=== PATIENT | female | born 1970 | race Caucasian/White ===

== ENCOUNTER 2018-03-12 00:30 | Observation (INO) | payer SELFPAY ==
[~2018-03-12] VITALS: Ht 154.9 cm; Wt 84.9 kg
[2018-03-12] VITALS (13 sets, daily range): BP systolic 93–139; BP diastolic 65–103
--- OUTSIDE RECORDS SUMMARY | 2018-03-12 00:38 | XMS REPORT ---
Author Author AMPARO KONG [facility] eClinicalWorks Address Unknown Phone Unavailable Care Team Providers Care Plasterer Spray Gun Name Role Phone AMPARO KONG CP Unavailable Allergies, Adverse Reactions, Alerts Substance Reaction Event Type Seroquel rls symptoms Drug Allergy Problems Problem Type Condition Code Onset Dates Condition Status Assessment Right-sided low back pain with right-sided sciatica M54.41 Active Problem Lumbago 724.2 Active Assessment Chronic obstructive pulmonary disease, unspecified COPD type J44.9 Active Problem Arthritis 716.90 Active Assessment Dysthymia F34.1 Active Problem Anxiety 300.00 Active Problem Alopecia areata 704.01 Active Problem Depression 311 Active Problem Dysthymia F34.1 Active Problem Chronic obstructive pulmonary disease, unspecified COPD type J44.9 Active Problem Unspecified gastritis and gastroduodenitis without mention of hemorrhage 535.50 Active Problem Unspecified viral hepatitis C without hepatic coma 070.70 Active Problem Moderate episode of recurrent major depressive disorder F33.1 Active Problem Restless legs syndrome [RLS] 333.94 Active Problem Right-sided low back pain with right-sided sciatica M54.41 Active Problem Anxiety state F41.1 Active Problem Essential hypertension I10 Active Problem Alopecia areata L63.9 Active Problem Obstructive chronic bronchitis, with (acute) exacerbation 491.21 Active Problem Chronic airway obstruction, not elsewhere classified 496 Active Problem Essential hypertension, benign 401.1 Active Problem Unspecified fasciitis 729.4 Active Problem Painful respiration 786.52 Active Problem Pain in joint, lower leg 719.46 Active Problem Asthma, unspecified, unspecified status 493.90 Active Problem Pain in joint, shoulder region 719.41 Active Medications Medication Code System Code Instructions Start Date End Date Status Dosage Zyprexa [facility] [address]-74 5 MG Orally Once a day 1 tablet Valium [facility] [address]-41 5 MG Orally twice a day 1 tablet as needed Lisinopril [facility] [address]-75 10 mg 2 times a day January 07, 2014 take 1 tab Ibuprofen [facility] [address]-96 800 MG Orally Three times a day Oct 11, 2015 1 tablet Fluoxetine NDC 0 40 mg orally Once a day April 01, 2014 take 1 tablet Gabapentin [facility] [address]-27 400 MG Orally Three times a day Apr 21, 2015 1 capsule Parafon Forte DSC [facility] 87003337453 500 MG Orally Three times a day 1 tablet Albuterol Sulfate [facility] [address]-87 90 mcg/actuation January 07, 2014 2 puffs by Inhalation route every 4-6 hours as needed PRN cough or wheezing Furosemide [facility] [address]-15 40 mg Orally Once a day as needed for ankle swelling Jul 14, 2015 1-2 tablet Advair Diskus [facility] [address]-79 500-50 MCG/DOSE Inhalation Twice a day February 14, 2015 1 puff tramadol NDC 0 50 mg orally 4 times a day as needed for pain Jul 08, 2014 take 1 tablet doxepin NDC 0 10 mg 2 tablets at bedtime November 12, 2013 not defined Carvedilol [facility] [address]-36 12.5 MG Orally 2 times a day April 01, 2014 1 tablet Procedures Procedure Coding System Code Date Office Visit, Est Pt., Level 3 CPT-4 35229 March 27, 2016 Vital Signs Date/Time: March 27, 2016 Cardiac Monitoring Heart Rate 92 bpm Weight 164.0 lbs Height 64.5 in BMI 27.71 Index Results No Known Results Summary Purpose eClinicalWorks Submission
--- OUTSIDE RECORDS SUMMARY | 2018-03-12 00:38 | XMS REPORT ---
Author Author AMPARO KONG [facility] eClinicalWorks Address Unknown Phone Unavailable Care Team Providers Care Info Specialist Name Role Phone AMPARO KONG CP Unavailable Allergies, Adverse Reactions, Alerts Substance Reaction Event Type Seroquel rls symptoms Drug Allergy Problems Problem Type Condition ICD-9 Code Onset Dates Condition Status Problem Chronic airway obstruction, not elsewhere classified 496 Active Problem Pain in joint, shoulder region 719.41 Active Problem Asthma, unspecified, unspecified status 493.90 Active Problem Depression 311 Active Problem Anxiety 300.00 Active Problem Alopecia areata 704.01 Active Problem Pain in joint, lower leg 719.46 Active Problem Painful respiration 786.52 Active Problem Arthritis 716.90 Active Problem Lumbago 724.2 Active Assessment Chronic airway obstruction, not elsewhere classified 496 Active Assessment Pain in joint, lower leg 719.46 Active Assessment Alopecia areata 704.01 Active Assessment Depression 311 Active Problem Unspecified gastritis and gastroduodenitis without mention of hemorrhage 535.50 Active Problem Essential hypertension, benign 401.1 Active Problem Restless legs syndrome [RLS] 333.94 Active Problem Unspecified fasciitis 729.4 Active Problem Unspecified viral hepatitis C without hepatic coma 070.70 Active Problem Obstructive chronic bronchitis, with (acute) exacerbation 491.21 Active Medications Medication Code System Code Instructions Start Date End Date Status Dosage Lisinopril [facility] [address]-35 10 mg January 07, 2014 take 1 tablet by Oral route 1 time per day Take in am Advair Diskus [facility] [address]-16 500-50 MCG/DOSE Inhalation Twice a day February 14, 2015 [address] [facility] [address]-77 15 MG Once a day Jul 08, 2014 take 1 Tablet Albuterol Sulfate [facility] [address]-95 90 mcg/actuation January 07, 2014 2 puffs by Inhalation route every 4-6 hours as needed PRN cough or wheezing tramadol ND 0 50 mg orally 4 times a day as needed for pain Jul 08, 2014 take 1 tablet Abilify [facility] [address]-68 15 MG Orally May 24, 2014 take 1 tablet (10 mg) by oral route once daily Valium [facility] [address]-39 5 MG Orally Twice a day 1 tablet as needed Minoxidil [facility] [address]-79 5 % Externally Twice a day May 19, 2015 5 ml to affected area Gabapentin [facility] [address]-61 300 MG Orally Three times a day Apr 21, 2015 1 capsule 1 tab qhs x 5 d then bid x 5 d then tid Carvedilol [facility] [address]-84 12.5 mg April 01, 2014 1 tablet by Oral route 2 times per day Lamictal [facility] [address]-84 200 mg April 01, 2014 take 1 tablet ( 200 mg) by oral route once daily doxepin [facility] 0 November 12, 2013 by oral route Take one 10 mg tablet daily Fluoxetine [facility] 0 80 mg orally Once a day April 01, 2014 take 1 tablet Procedures Procedure Coding System Code Date Office Visit, Est Pt., Level 3 CPT-4 21776 May 19, 2015 Vital Signs Date/Time: May 19, 2015 Temperature 99.5 F Weight 170.6 lbs Height 64.5 in BMI 28.83 Index Blood Pressure Diastolic 72 mmHg Blood Pressure Systolic 120 mmHg Cardiac Monitoring Heart Rate 115 bpm Results No Known Results Summary Purpose eClinicalWorks Submission
--- OUTSIDE RECORDS SUMMARY | 2018-03-12 00:38 | XMS REPORT ---
Author Author AMPARO KONG [facility] eClinicalWorks Address Unknown Phone Unavailable Care Team Providers Care Electrical Electronics Engineer Name Role Phone AMPARO KONG CP Unavailable Allergies, Adverse Reactions, Alerts Substance Reaction Event Type Seroquel rls symptoms Drug Allergy Problems Problem Type Condition Code Onset Dates Condition Status Assessment Acute nasopharyngitis J00 Active Assessment Arthritis M19.90 Active Assessment Chronic obstructive pulmonary disease, unspecified COPD type J44.9 Active Assessment Essential hypertension I10 Active Problem Arthritis 716.90 Active Assessment Moderate episode of recurrent major depressive disorder F33.1 Active Problem Anxiety 300.00 Active Problem Restless legs syndrome [RLS] 333.94 Active Problem Depression 311 Active Problem Anxiety state F41.1 Active Problem Alopecia areata 704.01 Active Problem Moderate episode of recurrent major depressive disorder F33.1 Active Problem Dysthymia F34.1 Active Problem Essential hypertension, benign 401.1 Active Problem Unspecified gastritis and gastroduodenitis without mention of hemorrhage 535.50 Active Problem Arthritis M19.90 Active Problem Unspecified viral hepatitis C without hepatic coma 070.70 Active Problem Alopecia areata L63.9 Active Problem Right-sided low back pain with right-sided sciatica M54.41 Active Problem Chronic obstructive pulmonary disease, unspecified COPD type J44.9 Active Problem Essential hypertension I10 Active Problem Chronic airway obstruction, not elsewhere classified 496 Active Problem Asthma, unspecified, unspecified status 493.90 Active Problem Unspecified fasciitis 729.4 Active Problem Obstructive chronic bronchitis, with (acute) exacerbation 491.21 Active Problem Pain in joint, lower leg 719.46 Active Problem Lumbago 724.2 Active Problem Pain in joint, shoulder region 719.41 Active Problem Painful respiration 786.52 Active Medications Medication Code System Code Instructions Start Date End Date Status Dosage doxepin NDC 0 10 mg by oral route Once a day at hs November 12, 2013 2 tablet Ibuprofen [facility] [address]-04 800 MG Orally Three times a day Oct 11, 2015 1 tablet Furosemide [facility] [address]-21 40 mg Orally Once a day as needed for ankle swelling Jul 14, 2015 1-2 tablet tramadol NDC 0 50 mg orally 4 times a day as needed for pain Jul 08, 2014 take 1 tablet Carvedilol [facility] [address]-64 12.5 MG Orally 2 times a day April 01, 2014 1 tablet Zyprexa [facility] [address]-40 5 mg Orally Once a day 1 tablet Gabapentin [facility] [address]-33 400 MG Orally Three times a day Apr 21, 2015 1 capsule Advair Diskus [facility] [address]-72 500-50 MCG/DOSE Inhalation Twice a day February 14, 2015 1 puff Parafon Forte DSC [facility] 37856728032 500 MG Orally Three times a day 1 tablet Lisinopril [facility] [address]-67 10 mg 2 times a day January 07, 2014 take 1 tab Valium [facility] [address]-08 5 MG Orally twice a day 1 tablet as needed Fluoxetine NDC 0 40 mg orally Once a day April 01, 2014 take 1 tablet Albuterol Sulfate [facility] [address]-31 90 mcg/actuation Inhalation 4 times a day January 07, 2014 2 puffs by Inhalation route every 4-6 hours as needed PRN cough or wheezing Procedures Procedure Coding System Code Date Office Visit, Est Pt., Level 3 CPT-4 05622 May 23, 2016 Vital Signs Date/Time: May 23, 2016 Cardiac Monitoring Heart Rate 102 bpm Weight 160.4 lbs Height 64.5 in BMI 27.10 Index Blood Pressure Diastolic 74 mmHg Blood Pressure Systolic 120 mmHg Results No Known Results Summary Purpose eClinicalWorks Submission
--- OUTSIDE RECORDS SUMMARY | 2018-03-12 00:39 | XMS REPORT ---
Author Author AMPARO KONG [facility] eClinicalWorks Address Unknown Phone Unavailable Care Team Providers Care Audit Specialist Name Role Phone AMPARO KONG CP Unavailable Allergies, Adverse Reactions, Alerts Substance Reaction Event Type Seroquel rls symptoms Drug Allergy Problems Problem Type Condition Code Onset Dates Condition Status Problem Chronic [...] 716.90 Active Problem Lumbago 724.2 Active Assessment Ankle swelling, unspecified laterality M25.473 Active Assessment Lumbago 724.2 Active Problem Unspecified gastritis and gastroduodenitis without mention of hemorrhage 535.50 Active Problem Essential hypertension, benign 401.1 Active Problem Restless legs syndrome [RLS] 333.94 Active Problem Unspecified fasciitis 729.4 Active Problem Unspecified viral hepatitis C without hepatic coma 070.70 Active Problem Obstructive chronic bronchitis, with (acute) exacerbation 491.21 Active Medications Medication Code System Code Instructions Start Date End Date Status Dosage Valium [facility] [address]-68 5 MG Orally Twice a day 1 tablet as needed Fluoxetine [facility] 0 80 mg orally Once a day April 01, 2014 take 1 tablet Gabapentin [facility] [address]-34 300 MG Orally Three times a day Apr 21, 2015 1 capsule 1 tab qhs x 5 d then bid x 5 d then tid Albuterol Sulfate [facility] [address]-94 90 mcg/actuation January 07, 2014 2 puffs by Inhalation route every 4-6 hours as needed PRN cough or wheezing Mobic [facility] [address]-51 15 MG Once a day Jul 08, 2014 take 1 Tablet Abilify [facility] [address]-64 15 MG Orally May 24, 2014 take 1 tablet (10 mg) by oral route once daily tramadol ND 0 50 mg orally 4 times a day as needed for pain Jul 08, 2014 take 1 tablet Carvedilol [facility] [address]-19 12.5 MG April 01, 2014 1 tablet by Oral route 2 times per day doxepin ND 0 November 12, 2013 by oral route Take one 10 mg tablet daily Lisinopril [facility] [address]-20 10 mg January 07, 2014 take 1 tablet by Oral route 1 time per day Take in am Advair Diskus [facility] [address]-60 500-50 MCG/DOSE Inhalation Twice a day February 14, 2015 1 puff Furosemide [facility] [address]-77 40 MG Orally Once a day as needed for ankle swelling Jul 14, 2015 1 tablet Lamictal [facility] [address]-11 200 mg April 01, 2014 take 1 tablet ( 200 mg) by oral route once daily Parafon Forte DSC [facility] [address]-89 500 MG Orally Three times a day Jul 1 tablet Minoxidil [facility] [address]-24 5 % Externally Twice a day May 19, 2015 5 ml to affected area Procedures Procedure Coding System Code Date Office Visit, Est Pt., Level 3 CPT-4 25808 Jul 14, 2015 Vital Signs Date/Time: Jul 14, 2015 Temperature 97.9 F Weight 188.6 lbs Height 64.5 in BMI 31.87 Index Blood Pressure Diastolic 80 mmHg Blood Pressure Systolic 130 mmHg Cardiac Monitoring Heart Rate 97 bpm Results No Known Results Summary Purpose eClinicalWorks Submission
--- OUTSIDE RECORDS SUMMARY | 2018-03-12 00:39 | XMS REPORT ---
Author Author AMPARO KONG [facility] Address [address] [place] [address] Care Team Providers Care Brick Burner Name Role Phone AMPARO KONG Unavailable PROBLEMS Type Condition ICD9-CM Code XHC42-LD Code Onset Dates Condition Status SNOMED Code Problem Alopecia areata 704.01 Active 36815532 Problem Right-sided low back pain with right-sided sciatica M54.41 Active 893776006 Problem Anxiety state F41.1 Active 597821018 Problem Arthritis M19.90 Active 0586381 Problem Unspecified fasciitis 729.4 Active 26414777 Problem Moderate episode of recurrent major depressive disorder F33.1 Active 216762131 Problem Essential hypertension, benign 401.1 Active 9336834 Problem Unspecified gastritis and gastroduodenitis without mention of hemorrhage 535.50 Active 621639073 Problem Essential hypertension I10 Active 71491433 Problem Alopecia areata L63.9 Active 08954861 Problem Dysthymia F34.1 Active 67785046 Problem Chronic obstructive pulmonary disease, unspecified COPD type J44.9 Active 46181575 Problem Asthma, unspecified, unspecified status 493.90 Active 94178855 Problem Pain in joint, shoulder region 719.41 Active 505760660 Problem Obstructive chronic bronchitis, with (acute) exacerbation 491.21 Active 715083637 Problem Chronic airway obstruction, not elsewhere classified 496 Active 71894242 Problem Lumbago 724.2 Active 165145560 Problem Arthritis 716.90 Active 4068446 Problem Restless legs syndrome [RLS] 333.94 Active 59579059 Problem Painful respiration 786.52 Active 90350157 Problem Anxiety 300.00 Active 90204772 Problem Unspecified viral hepatitis C without hepatic coma 070.70 Active 82537462 Problem Pain in joint, lower leg 719.46 Active 424688180 Problem Depression 311 Active 72629384 ALLERGIES Substance Reaction Event Type Date Status Seroquel rls symptoms Drug Allergy Aug, Active SOCIAL HISTORY No smoking Hx information available PLAN OF CARE Activity Details Follow Up 4 Weeks Reason:depression VITAL SIGNS Height 64.5 in 2016-08-14 Weight 167.2 lbs 2016-08-14 Temperature 96.9 degrees Fahrenheit 2016-08-14 Heart Rate 98 bpm 2016-08-14 Respiratory Rate 20 2016-08-14 Oximetry 99 % 2016-08-14 BMI 28.25 kg/m2 2016-08-14 Blood pressure systolic 122 mmHg 2016-08-14 Blood pressure diastolic 70 mmHg 2016-08-14 MEDICATIONS Medication Instructions Dosage Frequency Start Date End Date Duration Status doxepin 10 mg by oral route Once a day at hs 2 tablet Oct, Active Carvedilol 12.5 MG Orally 2 times a day 1 tablet 12h Mar, Active Albuterol Sulfate 90 mcg/actuation Inhalation 4 times a day 2 puffs by Inhalation route every 4-6 hours as needed PRN cough or wheezing 6h December, Active Lamictal 25 MG Orally Once a day 1-2 tablets 1 tab qhs x 2 then 2 tab qhs 24h Aug, Active Ibuprofen 800 MG Orally Three times a day 1 tablet 8h Oct, Active Valium 5 mg Orally twice a daymust last month 1 tablet as needed Active Gabapentin 400 MG Orally Three times a day 1 capsule 8h Apr, Active Lisinopril 10 mg take 1 tab 12h December, Active Advair Diskus 500-50 MCG/DOSE Inhalation Twice a day 1 puff 12h Jan, Active Fluoxetine 40 mg orally Once a day take 2 tablet 24h Mar, Active PredniSONE 10 MG Orally Once a day 4 tablet with food or milk x 4 d then 3 tab x 4 d then 2 tab x 4 d then 1 tab x 4 d 24h Aug, Active Parafon Forte DSC 500 MG Orally Three times a day 1 tablet 8h Active RESULTS Name Result Date Reference Range URINE DRUG SCREEN (IN HOUSE) 2016-08-14 Lot # [id number] Exp date 10/19 Control positive COCAINE neg AMPH neg MTD neg THC neg OPIATE neg BENZO neg PCP neg BAR neg OXY neg MAMP neg TCA neg BUP neg MDMA neg PROCEDURES Procedure Date Ordered Related Diagnosis Body Site MEASURE BLOOD OXYGEN LEVEL Aug 14, 2016 DRUG SCREEN NON TLC DEVICES Aug 14, 2016 NEB/MDI RX INITIAL Aug 14, 2016 Office Visit, Est Pt., Level 3 Aug 14, 2016 IMMUNIZATIONS No Known Immunizations
--- OUTSIDE RECORDS SUMMARY | 2018-03-12 00:39 | XMS REPORT ---
Author Author AMPARO KONG [facility] eClinicalWorks Address Unknown Phone Unavailable Care Team Providers Care Schedule Announcer Name Role Phone AMPARO KONG CP Unavailable [...] 716.90 Active Problem Lumbago 724.2 Active Assessment Arthritis 716.90 Active Assessment Depression 311 Active Assessment Right foot pain M79.671 Active Problem Unspecified gastritis and gastroduodenitis without mention of hemorrhage 535.50 Active Problem Essential hypertension, benign 401.1 Active Problem Restless legs syndrome [RLS] 333.94 Active Problem Unspecified fasciitis 729.4 Active Problem Unspecified viral hepatitis C without hepatic coma 070.70 Active Problem Obstructive chronic bronchitis, with (acute) exacerbation 491.21 Active Medications Medication Code System Code Instructions Start Date End Date Status Dosage Mobic [facility] [address]-62 15 MG Once a day Jul 08, 2014 take 1 Tablet Advair Diskus [facility] [address]-45 500-50 MCG/DOSE Inhalation Twice a day February 14, 2015 1 puff Lisinopril [facility] [address]-19 10 mg January 07, 2014 take 1 tablet by Oral route 1 time per day Take in am Lamictal [facility] [address]-76 200 mg April 01, 2014 take 1 tablet ( 200 mg) by oral route once daily Minoxidil [facility] [address]-44 5 % Externally Twice a day May 19, 2015 5 ml to affected area Gabapentin [facility] [address]-61 300 MG Orally Three times a day Apr 21, 2015 1 capsule 1 tab qhs x 5 d then bid x 5 d then tid Albuterol Sulfate [facility] [address]-20 90 mcg/actuation January 07, 2014 2 puffs by Inhalation route every 4-6 hours as needed PRN cough or wheezing doxepin NDC 0 November 12, 2013 by oral route Take one 10 mg tablet daily Carvedilol [facility] [address]-42 12.5 mg April 01, 2014 1 tablet by Oral route 2 times per day Abilify [facility] [address]-56 15 MG Orally May 24, 2014 take 1 tablet (10 mg) by oral route once daily tramadol NDC 0 50 mg orally 4 times a day as needed for pain Jul 08, 2014 take 1 tablet Valium [facility] [address]-11 5 MG Orally Twice a day 1 tablet as needed Fluoxetine NDC 0 80 mg orally Once a day April 01, 2014 take 1 tablet Procedures Procedure Coding System Code Date Office Visit, Est Pt., Level 3 CPT-4 83370 Jun 16, 2015 Vital Signs Date/Time: Jun 16, 2015 Temperature 98.4 F Weight 171 lbs Height 64.5 in BMI 28.90 Index Blood Pressure Diastolic 70 mmHg Blood Pressure Systolic 130 mmHg Cardiac Monitoring Heart Rate 80 bpm Results No Known Results Summary Purpose eClinicalWorks Submission
--- OUTSIDE RECORDS SUMMARY | 2018-03-12 00:39 | XMS REPORT ---
Author Author AMPARO KONG Organization eClinicalWorks Address Unknown Phone Unavailable Care Team Providers Care Cad Design Engineer Name Role Phone AMPARO KONG CP Unavailable Allergies No Known Allergies Problems Problem Type Condition Code Onset Dates Condition Status Problem Anxiety 300.00 Active Problem Alopecia areata 704.01 Active Problem Depression 311 Active Problem Dysthymia F34.1 Active Problem Unspecified gastritis and gastroduodenitis without mention of hemorrhage 535.50 Active Problem Chronic obstructive pulmonary disease, unspecified COPD type J44.9 Active Problem Unspecified viral hepatitis C without hepatic coma 070.70 Active Problem Restless legs syndrome [RLS] 333.94 Active Problem Moderate episode of recurrent major depressive disorder F33.1 Active Problem Right-sided low back pain with [...] Asthma, unspecified, unspecified status 493.90 Active Problem Lumbago 724.2 Active Problem Pain in joint, shoulder region 719.41 Active Problem Arthritis 716.90 Active Medications Medication Code System Code Instructions Start Date End Date Status Dosage tramadol NDC 0 50 mg orally 4 times a day as needed for pain Jul 08, 2014 take 1 tablet Results No Known Results Summary Purpose eClinicalWorks Submission
--- OUTSIDE RECORDS SUMMARY | 2018-03-12 00:39 | XMS REPORT ---
Author Author AMPARO KNOG [facility] Address [address] [place] [address] Care Team Providers Care Busser Name Role Phone AMPARO KONG Unavailable PROBLEMS Type Condition ICD9-CM Code [id number] Code Onset Dates Condition Status SNOMED Code Problem Alopecia areata 704.01 Active 32952554 Problem Right-sided low back pain with right-sided sciatica M54.41 Active 227122901 Problem Anxiety state F41.1 Active 654847013 Problem Arthritis M19.90 Active 0105248 Problem Unspecified fasciitis 729.4 Active 97274714 Problem Moderate episode of recurrent major depressive disorder F33.1 Active 416137618 Problem Essential hypertension, benign 401.1 Active 3745530 Problem Unspecified gastritis and gastroduodenitis without mention of hemorrhage 535.50 Active 436602863 Problem Essential hypertension I10 Active 38989403 Problem Alopecia areata L63.9 Active 54430483 Problem Dysthymia F34.1 Active 50347531 Problem Chronic obstructive pulmonary disease, unspecified COPD type J44.9 Active 19561667 Problem Asthma, unspecified, unspecified status 493.90 Active 47936356 Problem Pain in joint, shoulder region 719.41 Active 569874890 Problem Obstructive chronic bronchitis, with (acute) exacerbation 491.21 Active 093654533 Problem Chronic airway obstruction, not elsewhere classified 496 Active 45816951 Problem Lumbago 724.2 Active 980463842 Problem Arthritis 716.90 Active 7901412 Problem Restless legs syndrome [RLS] 333.94 Active 66863732 Problem Painful respiration 786.52 Active 17802545 Problem Anxiety 300.00 Active 77708723 Problem Unspecified viral hepatitis C without hepatic coma 070.70 Active 00864536 Problem Pain in joint, lower leg 719.46 Active 233591014 Problem Depression 311 Active 81633881 ALLERGIES Unknown Allergies SOCIAL HISTORY No smoking Hx information available PLAN OF CARE VITAL SIGNS MEDICATIONS Unknown Medications RESULTS No Results PROCEDURES No Known procedures IMMUNIZATIONS No Known Immunizations
--- OUTSIDE RECORDS SUMMARY | 2018-03-12 00:39 | XMS REPORT ---
Author Author AMPARO KONG Organization [employer] Address Unknown Phone Unavailable Care Team Providers Care Lithopone Charger Name Role Phone AMPARO KONG CP Unavailable [...] Start Date End Date Status Dosage Valium [facility] [address]-35 5 MG Orally twice a day 1 tablet as needed Results No Known Results Summary Purpose [employer] Submission
--- OUTSIDE RECORDS SUMMARY | 2018-03-12 00:39 | XMS REPORT ---
Author Author AMPARO KONG [facility] [employer] Address Unknown Phone Unavailable Care Team Providers Care Director Service Name Role Phone AMPARO KONG CP Unavailable Allergies, Adverse Reactions, Alerts Substance Reaction Event Type Seroquel rls symptoms Drug Allergy Problems Problem Type Condition ICD-9 Code Onset Dates Condition Status Problem Obstructive chronic bronchitis, with (acute) exacerbation 491.21 Active Problem Asthma, unspecified, unspecified status 493.90 Active Problem Chronic airway obstruction, not elsewhere classified 496 Active Problem Anxiety 300.00 Active Problem Arthritis 716.90 Active Problem Depression 311 Active Problem Painful respiration 786.52 Active Problem Pain in joint, shoulder region 719.41 Active Problem Lumbago 724.2 Active Problem Pain in joint, lower leg 719.46 Active Assessment Depression 311 Active Problem Unspecified viral hepatitis C without hepatic coma 070.70 Active Problem Unspecified gastritis and gastroduodenitis without mention of hemorrhage 535.50 Active Assessment Pain in joint, lower leg 719.46 Active Problem Essential hypertension, benign 401.1 Active Problem Restless legs syndrome [RLS] 333.94 Active Problem Unspecified fasciitis 729.4 Active Medications Medication Code System Code Instructions Start Date End Date Status Dosage tramadol NDC 0 50 mg orally 4 times a day as needed for pain Jul 08, 2014 take 1 tablet Valium [facility] [address]-08 5 MG Orally Twice a day 1 tablet as needed doxepin NDC 0 November 12, 2013 by oral route Take one 10 mg tablet daily Albuterol Sulfate [facility] [address]-49 90 mcg/actuation January 07, 2014 2 puffs by Inhalation route every 4-6 hours as needed PRN cough or wheezing Carvedilol [facility] [address]-89 12.5 mg April 01, 2014 1 tablet by Oral route 2 times per day Fluoxetine NDC 0 80 mg orally Once a day April 01, 2014 take 1 tablet Lamictal [facility] [address]-10 200 mg April 01, 2014 take 1 tablet ( 200 mg) by oral route once daily Mobic [facility] [address]-31 15 MG Once a day Jul 08, 2014 take 1 Tablet Advair Diskus [facility] [address]-46 500-50 MCG/DOSE Inhalation Twice a day February 14, 2015 1 puff Lisinopril [facility] [address]-51 10 mg January 07, 2014 take 1 tablet by Oral route 1 time per day Take in am Gabapentin [facility] [address]-41 300 MG Orally Three times a day Apr 21, 2015 1 capsule 1 tab qhs x 5 d then bid x 5 d then tid Abilify [facility] [address]-69 15 MG Orally May 24, 2014 take 1 tablet (10 mg) by oral route once daily Procedures Procedure Coding System Code Date Office Visit, Est Pt., Level 3 CPT-4 27877 Apr 21, 2015 Vital Signs Date/Time: Apr 21, 2015 Cardiac Monitoring Heart Rate 80 bpm Weight 168 lbs Height 64.5 in BMI 28.39 Index Blood Pressure Diastolic 68 mmHg Blood Pressure Systolic 122 mmHg Results No Known Results Summary Purpose [employer] Submission
--- OUTSIDE RECORDS SUMMARY | 2018-03-12 00:39 | XMS REPORT ---
Author Author AMPARO KONG Organization [employer] Address Unknown Phone Unavailable Care Team Providers Care Horse Trainer Name Role Phone AMPARO KONG CP Unavailable Allergies No Known Allergies Problems Problem Type Condition Code Onset Dates Condition Status Problem Arthritis 716.90 Active Assessment Arthritis M19.90 Active Problem Anxiety 300.00 Active Problem Restless [...] Start Date End Date Status Dosage Valium NDC [address]-62 5 MG Orally twice a day 1 tablet as needed tramadol NDC 0 50 mg orally 4 times a day as needed for pain Jul 08, 2014 take 1 tablet Results No Known Results Summary Purpose [employer] Submission
--- OUTSIDE RECORDS SUMMARY | 2018-03-12 00:39 | XMS REPORT ---
Author Author BONNIE CORRALES [facility] eClinical[employer] Address Unknown Phone Unavailable Care Team Providers Care Signal Integrity Engineer Name Role Phone BONNIE CORRALES CP Unavailable Allergies No Known Allergies Problems [...] status 493.90 Active Problem Lumbago 724.2 Active Assessment Moderate episode of recurrent major depressive disorder F33.1 Active Problem Pain in joint, shoulder region 719.41 Active Problem Arthritis 716.90 Active Medications No Known Medications Results No Known Results Summary Purpose [employer] Submission
--- OUTSIDE RECORDS SUMMARY | 2018-03-12 00:40 | XMS REPORT ---
Author Author AMPARO KONG [facility] e[employer] Address Unknown Phone Unavailable Care Team Providers Care Furnace And Wash Equipment Operator Name Role Phone AMPARO KONG CP Unavailable Allergies, Adverse Reactions, Alerts Substance Reaction Event Type Seroquel rls symptoms Drug Allergy Problems Problem Type Condition Code Onset Dates Condition Status Problem Pain in joint, lower leg 719.46 Active Assessment Dysthymia F34.1 Active Problem Lumbago 724.2 Active Assessment Right-sided low back pain with right-sided sciatica M54.41 Active Problem Arthritis 716.90 Active Problem Depression 311 Active Problem Anxiety 300.00 Active Problem Chronic obstructive pulmonary disease, unspecified COPD type J44.9 Active Problem Essential hypertension I10 Active Problem Unspecified viral hepatitis C without hepatic coma 070.70 Active Problem Restless legs syndrome [RLS] 333.94 Active Problem Dysthymia F34.1 Active Assessment Essential hypertension I10 Active Problem Anxiety state F41.1 Active Problem Alopecia areata 704.01 Active Problem Alopecia areata L63.9 Active Problem Right-sided low back pain with right-sided sciatica M54.41 Active Problem Unspecified fasciitis 729.4 Active Problem Obstructive chronic bronchitis, with (acute) exacerbation 491.21 Active Problem Unspecified gastritis and gastroduodenitis without mention of hemorrhage 535.50 Active Problem Essential hypertension, benign 401.1 Active Problem Pain in joint, shoulder region 719.41 Active Problem Painful respiration 786.52 Active Problem Chronic airway obstruction, not elsewhere classified 496 Active Problem Asthma, unspecified, unspecified status 493.90 Active Medications Medication Code System Code Instructions Start Date End Date Status Dosage doxepin [facility] 0 10 mg 2 tablets at bedtime November 12, 2013 not defined Lisinopril [facility] [address]-22 10 MG 2 times a day January 07, 2014 take 1 tab Advair Diskus [facility] [address]-02 500-50 MCG/DOSE Inhalation Twice a day February 14, 2015 1 puff Parafon Forte DSC [facility] [address]-63 500 MG Orally Three times a day Jul 1 tablet Fluoxetine NDC 0 40 mg orally Once a day April 01, 2014 take 1 tablet Albuterol Sulfate [facility] [address]-68 90 mcg/actuation January 07, 2014 2 puffs by Inhalation route every 4-6 hours as needed PRN cough or wheezing Valium [facility] [address]-39 5 MG Orally twice a day 1 tablet as needed tramadol NDC 0 50 mg orally 4 times a day as needed for pain Jul 08, 2014 take 1 tablet Gabapentin [facility] [address]-96 400 MG Orally Three times a day Apr 21, 2015 1 capsule Zyprexa [facility] [address]-43 5 MG Orally Once a day 1 tablet Ibuprofen [facility] [address]-00 800 MG Orally Three times a day Oct 11, 2015 1 tablet Carvedilol [facility] [address]-24 12.5 MG Orally 2 times a day April 01, 2014 1 tablet Procedures Procedure Coding System Code Date Office Visit, Est Pt., Level 3 CPT-4 50671 December 08, 2015 Vital Signs Date/Time: December 08, 2015 Temperature 97.9 F Weight 172.2 lbs Height 64.5 in BMI 29.10 Index Blood Pressure Diastolic 70 mmHg Blood Pressure Systolic 96 mmHg Cardiac Monitoring Heart Rate 104 bpm Results No Known Results Summary Purpose eClinicalWorks Submission
--- OUTSIDE RECORDS SUMMARY | 2018-03-12 00:40 | XMS REPORT ---
Author Author AMPARO KONG Organization [employer] Address Unknown Phone Unavailable Care Team Providers Care Director Of Email Marketing Name Role Phone AMPARO KONG CP Unavailable Allergies, Adverse Reactions, Alerts Substance Reaction Event Type Seroquel rls symptoms Drug Allergy Problems Problem Type Condition Code Onset Dates Condition Status Problem Painful respiration 786.52 Active Problem Lumbago 724.2 Active Problem Pain in joint, lower leg 719.46 Active Problem Right-sided low back pain with right-sided sciatica M54.41 Active Assessment Right-sided low back pain with right-sided sciatica M54.41 Active Problem Anxiety state F41.1 Active Assessment Anxiety state F41.1 Active Problem Alopecia areata L63.9 Active Problem Anxiety 300.00 Active Problem Arthritis 716.90 Active Problem Alopecia areata 704.01 Active Problem Depression 311 Active Problem Unspecified viral hepatitis C without hepatic coma 070.70 Active Problem Unspecified gastritis and gastroduodenitis without mention of hemorrhage 535.50 Active Assessment Alopecia areata L63.9 Active Problem Restless legs syndrome [RLS] 333.94 Active Problem Obstructive chronic bronchitis, with (acute) exacerbation 491.21 Active Problem Chronic airway obstruction, not elsewhere classified 496 Active Problem Essential hypertension, benign 401.1 Active Problem Asthma, unspecified, unspecified status 493.90 Active Problem Unspecified fasciitis 729.4 Active Problem Pain in joint, shoulder region 719.41 Active Medications Medication Code System Code Instructions Start Date End Date Status Dosage Lisinopril [facility] [address]-70 10 mg January 07, 2014 take 1 tablet by Oral route 1 time per day Take in am tramadol [place] 0 50 mg orally 4 times a day as needed for pain Jul 08, 2014 take 1 tablet Abilify [facility] [address]-26 15 MG Orally May 24, 2014 take 1 tablet (10 mg) by oral route once daily Carvedilol [facility] [address]-02 12.5 MG April 01, 2014 1 tablet by Oral route 2 times per day Minoxidil [facility] [address]-08 5 % Externally Twice a day May 19, 2015 5 ml to affected area Gabapentin [facility] [address]-37 300 MG Orally Three times a day Apr 21, 2015 1 capsule Albuterol Sulfate [facility] [address]-10 90 mcg/actuation January 07, 2014 2 puffs by Inhalation route every 4-6 hours as needed PRN cough or wheezing Advair Diskus [facility] [address]-21 500-50 MCG/DOSE Inhalation Twice a day February 14, 2015 1 puff Fluoxetine [facility] 0 80 mg orally Once a day April 01, 2014 take 1 tablet Furosemide [facility] [address]-23 40 MG Orally Once a day as needed for ankle swelling Jul 14, 2015 [address] M[address] [facility] [address]-45 15 MG Once a day Jul 08, 2014 take 1 Tablet Lamictal [facility] [address]-47 200 mg April 01, 2014 take 1 tablet ( 200 mg) by oral route once daily doxepin [facility] 0 November 12, 2013 by oral route Take one 10 mg tablet daily Valium [facility] [address]-15 5 MG Orally Twice a day 1 tablet as needed Parafon Forte DSC [facility] [address]-97 500 MG Orally Three times a day Jul 1 tablet Procedures Procedure Coding System Code Date Office Visit, Est Pt., Level 3 CPT-4 90905 Aug 11, 2015 Vital Signs Date/Time: Aug 11, 2015 Temperature 98 F Weight 186 lbs Height 64.5 in BMI 31.43 Index Blood Pressure Diastolic 78 mmHg Blood Pressure Systolic 130 mmHg Cardiac Monitoring Heart Rate 90 bpm Results No Known Results Summary Purpose eClinicalWorks Submission
--- OUTSIDE RECORDS SUMMARY | 2018-03-12 00:40 | XMS REPORT ---
Author Author AMPARO KONG [facility] Address [address] [place] [address] Care Team Providers Care Administration Professional Name Role Phone AMPARO KONG Unavailable PROBLEMS Type Condition ICD9-CM Code [id number] Code Onset Dates Condition Status SNOMED Code Problem Alopecia areata 704.01 Active 70527143 Problem Right-sided low back pain with right-sided sciatica M54.41 Active 246789381 Problem Anxiety state F41.1 Active 885769372 Problem Arthritis M19.90 Active 1033887 Problem Unspecified fasciitis 729.4 Active 46111791 Problem Moderate episode of recurrent major depressive disorder F33.1 Active 204400223 Problem Essential hypertension, benign 401.1 Active 7682408 Problem Unspecified gastritis and gastroduodenitis without mention of hemorrhage 535.50 Active 635584559 Problem Essential hypertension I10 Active 82665791 Problem Alopecia areata L63.9 Active 39321295 Problem Dysthymia F34.1 Active 04441629 Problem Chronic obstructive pulmonary disease, unspecified COPD type J44.9 Active 15986943 Problem Asthma, unspecified, unspecified status 493.90 Active 97853613 Problem Pain in joint, shoulder region 719.41 Active 612787110 Problem Obstructive chronic bronchitis, with (acute) exacerbation 491.21 Active 111619977 Problem Chronic airway obstruction, not elsewhere classified 496 Active 77734178 Problem Lumbago 724.2 Active 520939304 Problem Arthritis 716.90 Active 7624093 Problem Restless legs syndrome [RLS] 333.94 Active 28792122 Problem Painful respiration 786.52 Active 75100657 Problem Anxiety 300.00 Active 36234136 Problem Unspecified viral hepatitis C without hepatic coma 070.70 Active 32454905 Problem Pain in joint, lower leg 719.46 Active 359969334 Problem Depression 311 Active 37641062 ALLERGIES Unknown Allergies SOCIAL HISTORY No smoking Hx information available PLAN OF CARE VITAL SIGNS MEDICATIONS Unknown Medications RESULTS No Results PROCEDURES No Known procedures IMMUNIZATIONS No Known Immunizations
--- OUTSIDE RECORDS SUMMARY | 2018-03-12 00:41 | XMS REPORT | Continuity of Care Document ---
Author Author [facility] Address Unknown Phone Unavailable Allergies Active Description Code Type Severity Reaction Onset Reported/Identified Relationship to Patient Clinical Status Yes Seroquel Drug Allergy N/A N/A 11/12/2013 Medications There is no data. Problems Date Dx Coded Attending Type Code Diagnosis Diagnosed By 02/12/2011 296.33 MO DEPRESSIVE RECURRENT SEVERE W/O PSYCHOTIC BEHAVIOR 02/12/2011 309.81 AN PTSD 02/12/2011 AMPARO KONG APRN 296.33 MO DEPRESSIVE RECURRENT SEVERE W/O PSYCHOTIC BEHAVIOR 02/12/2011 AMPARO KONG APRN 309.81 AN PTSD 02/12/2011 296.33 MO DEPRESSIVE RECURRENT SEVERE W/O PSYCHOTIC BEHAVIOR 02/12/2011 309.81 AN PTSD 02/12/2011 CASE DUGAN DOA K 296.33 MO DEPRESSIVE RECURRENT SEVERE W/O PSYCHOTIC BEHAVIOR 02/12/2011 CASE DUGAN DOA K 309.81 AN PTSD 02/12/2011 CASE DUGAN DOA K 296.33 MO DEPRESSIVE RECURRENT SEVERE W/O PSYCHOTIC BEHAVIOR 02/12/2011 RITCHIE ALLISON RAY K 309.81 AN PTSD 02/12/2011 DUGAN CASE ALLISONA K 296.33 MO DEPRESSIVE RECURRENT SEVERE W/O PSYCHOTIC BEHAVIOR 02/12/2011 CASE DUGAN DOA K 309.81 AN PTSD 02/12/2011 CASE DUGAN DOA K 296.33 MO DEPRESSIVE RECURRENT SEVERE W/O PSYCHOTIC BEHAVIOR 02/12/2011 CASE DUGAN DOA K 309.81 AN PTSD 02/12/2011 CASE DUGAN DOA K 296.33 MO DEPRESSIVE RECURRENT SEVERE W/O PSYCHOTIC BEHAVIOR 02/12/2011 CASE DUGAN DOA K 309.81 AN PTSD 02/12/2011 AMPARO KONG APRN 296.33 MO DEPRESSIVE RECURRENT SEVERE W/O PSYCHOTIC BEHAVIOR 02/12/2011 APMARO KONG APRN 309.81 AN PTSD 02/12/2011 AMPARO KONG APRN 296.33 MO DEPRESSIVE RECURRENT SEVERE W/O PSYCHOTIC BEHAVIOR 02/12/2011 AMPARO KONG APRN 309.81 AN PTSD 02/12/2011 DUGAN DO, RAY K 296.33 MO DEPRESSIVE RECURRENT SEVERE W/O PSYCHOTIC BEHAVIOR 02/12/2011 DUGAN DO RAY K 309.81 AN PTSD 02/12/2011 DUGAN DO, RAY K 296.33 MO DEPRESSIVE RECURRENT SEVERE W/O PSYCHOTIC BEHAVIOR 02/12/2011 UDGAN DO RAY K 309.81 AN PTSD 02/12/2011 DUGAN DO, RAY K 296.33 MO DEPRESSIVE RECURRENT SEVERE W/O PSYCHOTIC BEHAVIOR 02/12/2011 DUGAN DO, RAY K 309.81 AN PTSD 02/12/2011 DUGAN DO, RAY K 296.33 MO DEPRESSIVE RECURRENT SEVERE W/O PSYCHOTIC BEHAVIOR 02/12/2011 DUGAN DO RAY K 309.81 AN PTSD 03/06/2012 719.46 PAIN IN JOINT INVOLVING LOWER LEG 03/06/2012 724.2 BACK PAIN, LOWER 03/06/2012 AMPARO KONG APRN 719.46 PAIN IN JOINT INVOLVING LOWER LEG 03/06/2012 AMPARO KONG APRN 724.2 BACK PAIN, LOWER 03/06/2012 719.46 PAIN IN JOINT INVOLVING LOWER LEG 03/06/2012 724.2 BACK PAIN, LOWER 03/06/2012 DUGAN DO, RAY K 719.46 PAIN IN JOINT INVOLVING LOWER LEG 03/06/2012 DUGAN DO, RAY K 724.2 BACK PAIN, LOWER 03/06/2012 DUGAN DO, RAY K 719.46 PAIN IN JOINT INVOLVING LOWER LEG 03/06/2012 DUGAN DO, RAY K 724.2 BACK PAIN, LOWER 03/06/2012 DUGAN DO, RAY K 719.46 PAIN IN JOINT INVOLVING LOWER LEG 03/06/2012 DUGAN DO, RAY K 724.2 BACK PAIN, LOWER 03/06/2012 DUGAN DO, RAY K 719.46 PAIN IN JOINT INVOLVING LOWER LEG 03/06/2012 DUGAN DO, RAY K 724.2 BACK PAIN, LOWER 03/06/2012 DUGAN DO, RAY K 719.46 PAIN IN JOINT INVOLVING LOWER LEG 03/06/2012 DUGAN DO, RAY K 724.2 BACK PAIN, LOWER 03/06/2012 AMPARO KONG APRN 719.46 PAIN IN JOINT INVOLVING LOWER LEG 03/06/2012 AMPARO KONG APRN 724.2 BACK PAIN, LOWER 03/06/2012 AMPARO KONG APRN 719.46 PAIN IN JOINT INVOLVING LOWER LEG 03/06/2012 AMPARO KONG APRN 724.2 BACK PAIN, LOWER 03/06/2012 DUGAN DO, RAY K 719.46 PAIN IN JOINT INVOLVING LOWER LEG 03/06/2012 DUGAN DO, RAY K 724.2 BACK PAIN, LOWER 03/06/2012 DUGAN DO, RAY K 719.46 PAIN IN JOINT INVOLVING LOWER LEG 03/06/2012 DUGAN DO, RAY K 724.2 BACK PAIN, LOWER 03/06/2012 DUGAN DO, RAY K 719.46 PAIN IN JOINT INVOLVING LOWER LEG 03/06/2012 DUGAN DO, RAY K 724.2 BACK PAIN, LOWER 03/06/2012 DUGAN DO, RAY K 719.46 PAIN IN JOINT INVOLVING LOWER LEG 03/06/2012 DUGAN DO, RAY K 724.2 BACK PAIN, LOWER 05/07/2012 786.52 CHEST WALL PAIN 05/07/2012 AMPARO KONG APRN 786.52 CHEST WALL PAIN 05/07/2012 786.52 CHEST WALL PAIN 05/07/2012 DUGAN DO, RAY K 786.52 CHEST WALL PAIN 05/07/2012 DUGAN DO, RAY K 786.52 CHEST WALL PAIN 05/07/2012 DUGAN DO, RAY K 786.52 CHEST WALL PAIN 05/07/2012 DUGAN DO, RAY K 786.52 CHEST WALL PAIN 05/07/2012 DUGAN DO, RAY K 786.52 CHEST WALL PAIN 05/07/2012 AMPARO KONG APRN 786.52 CHEST WALL PAIN 05/07/2012 AMPARO KONG APRN 786.52 CHEST WALL PAIN 05/07/2012 DUGAN DO, RAY K 786.52 CHEST WALL PAIN 05/07/2012 DUGAN DO, RAY K 786.52 CHEST WALL PAIN 05/07/2012 DUGAN DO, RAY K 786.52 CHEST WALL PAIN 05/07/2012 DUGAN DO, RAY K 786.52 CHEST WALL PAIN 03/19/2013 535.50 GASTRITIS UNSPEC 03/19/2013 DUGAN DO, RAY K 535.50 GASTRITIS UNSPEC 03/19/2013 DUGAN DO, RAY K 535.50 GASTRITIS UNSPEC 03/19/2013 DUGAN DO, RAY K 535.50 GASTRITIS UNSPEC 03/19/2013 DUGAN DO, RAY K 535.50 GASTRITIS UNSPEC 03/19/2013 DUGAN DO, RAY K 535.50 GASTRITIS UNSPEC 03/19/2013 AMPARO KONG APRN 535.50 GASTRITIS UNSPEC 03/19/2013 AMPARO KONG APRN 535.50 GASTRITIS UNSPEC 03/19/2013 DUGAN DO, RAY K 535.50 GASTRITIS UNSPEC 03/19/2013 DUGAN DO, RAY K 535.50 GASTRITIS UNSPEC 03/19/2013 DUGAN DO, RAY K 535.50 GASTRITIS UNSPEC 03/19/2013 DUGAN DO, RAY K 535.50 GASTRITIS UNSPEC 05/27/2013 DUGAN DO, RAY K 333.94 RESTLESS LEGS SYNDROME (RLS) 05/27/2013 DUGAN DO, RAY K 333.94 RESTLESS LEGS SYNDROME (RLS) 05/27/2013 DUGAN DO, RAY K 333.94 RESTLESS LEGS SYNDROME (RLS) 05/27/2013 DUGAN DO, RAY K 333.94 RESTLESS LEGS SYNDROME (RLS) 05/27/2013 AMPARO KONG APRN 333.94 RESTLESS LEGS SYNDROME (RLS) 05/27/2013 KONGAMPARO DEGROOT APRN 333.94 RESTLESS LEGS SYNDROME (RLS) 05/27/2013 DUGAN DO, RAY K 333.94 RESTLESS LEGS SYNDROME (RLS) 05/27/2013 DUGAN DO, RAY K 333.94 RESTLESS LEGS SYNDROME (RLS) 05/27/2013 DUGAN DO, RAY K 333.94 RESTLESS LEGS SYNDROME (RLS) 05/27/2013 DUGAN DO, RAY K 333.94 RESTLESS LEGS SYNDROME (RLS) 08/12/2013 DUGAN DO, RAY K 491.21 BRONCHITIS AECB 08/12/2013 DUGAN DO, RAY K 491.21 BRONCHITIS AECB 08/12/2013 AMPARO KONG APRN 491.21 BRONCHITIS AECB 08/12/2013 AMPARO KONG APRN 491.21 BRONCHITIS AECB 08/12/2013 DUGAN DO, RAY K 491.21 BRONCHITIS AECB 08/12/2013 DUGAN DO, RAY K 491.21 BRONCHITIS AECB 08/12/2013 DUGAN DO, RAY K 491.21 BRONCHITIS AECB 08/12/2013 DUGAN DO, RAY K 491.21 BRONCHITIS AECB 11/12/2013 DUGAN DO, RAY K 401.1 HYPERTENSION, BENIGN ESSENTIAL 11/12/2013 DUGAN DO, RAY K 729.4 PLANTAR FASCIITIS 11/12/2013 AMPARO KONG APRN R 401.1 HYPERTENSION, BENIGN ESSENTIAL 11/12/2013 KONG AMPARO PURVIS 729.4 PLANTAR FASCIITIS 11/12/2013 KONGAMPARO DEGROOT APRN R 401.1 HYPERTENSION, BENIGN ESSENTIAL 11/12/2013 KONG BEATER OPERATORAMPARO 729.4 PLANTAR FASCIITIS 11/12/2013 DUGAN DO, RAY K 401.1 HYPERTENSION, BENIGN ESSENTIAL 11/12/2013 DUGAN DO, RAY K 729.4 PLANTAR FASCIITIS 11/12/2013 DUGAN DO, RAY K 401.1 HYPERTENSION, BENIGN ESSENTIAL 11/12/2013 DUGAN DO, RAY K 729.4 PLANTAR FASCIITIS 11/12/2013 DUGAN DO, RAY K 401.1 HYPERTENSION, BENIGN ESSENTIAL 11/12/2013 DUGAN DO, RAY K 729.4 PLANTAR FASCIITIS 11/12/2013 DUGAN DO, RAY K 401.1 HYPERTENSION, BENIGN ESSENTIAL 11/12/2013 DUGAN DO, RAY K 729.4 PLANTAR FASCIITIS 01/07/2014 AMPARO KONG APRN R 493.90 ASTHMA UNSPECIFIED 01/07/2014 AMPARO KONG APRN 496 COPD 01/07/2014 DUGAN DO, RAY K 493.90 ASTHMA UNSPECIFIED 01/07/2014 DUGAN DO, RAY K 496 COPD 01/07/2014 DUGAN DO, RAY K 493.90 ASTHMA UNSPECIFIED 01/07/2014 DUGAN DO, RAY K 496 COPD 01/07/2014 DUGAN DO, RAY K 493.90 ASTHMA UNSPECIFIED 01/07/2014 DUGAN DO, RAY K 496 COPD 01/07/2014 DUGAN DO, RAY K 493.90 ASTHMA UNSPECIFIED 01/07/2014 DUGAN DO, RAY K 496 COPD 05/24/2014 DUGAN DO, RAY K 070.70 HEPATITIS C, UNSPEC 05/24/2014 DUGAN DO, RAY K 070.70 HEPATITIS C, UNSPEC 05/24/2014 DUGAN DO, RAY K 070.70 HEPATITIS C, UNSPEC 07/08/2014 DUGAN DO, RAY K 719.41 PAIN- SHOULDER 07/08/2014 RAY DUGAN DO 719.41 PAIN- SHOULDER Procedures Code Description [place] [address] INFLUENZA A & B (IN-HOUSE) 08/12/2013 69820 XRAY FOOT RIGHT COMP MIN 3 VIEWS 12/10/2013 Podiatry Ana Dudley 12/10/2013 63127 EKG, TRACING (IN-HOUSE) 01/07/2014 78698 HEMOGLOBIN (IN-HOUSE) 04/01/2014 85118 ROUTINE VENIPUNCTURE 05/24/2014 0581496 GFR CALC (RESULT ONLY) 05/24/2014 80068 CMP 05/24/2014 28954 HEP C PCR QUANT W/CLEO 05/27/2014 Results There is no data. Encounters ACCT No. Visit Date/Time Discharge Status Pt. Type Provider Facility Loc./Unit Complaint [id number] 12/01/2014 09:24:00 12/01/2014 23:59:59 [facility] Outpatient RAY DUGAN DO [id number] 07/08/2014 10:35:00 07/08/2014 23:59:59 [facility] Outpatient RAY DUGAN DO [id number] 06/02/2014 10:33:00 06/02/2014 23:59:59 CLS Outpatient RAY DUGAN DO [id number] 04/01/2014 09:01:00 04/01/2014 23:59:59 CLS Outpatient RAY DUGAN DO [id number] 01/07/2014 11:08:00 01/07/2014 23:59:59 CLS Outpatient AMPARO KONG APRN [id number] 12/10/2013 09:37:00 12/10/2013 23:59:59 CLS Outpatient AMAPRO KONG APRN [id number] 11/12/2013 09:07:00 11/12/2013 23:59:59 CLS Outpatient RAY DUGAN DO [id number] 08/12/2013 14:11:00 08/12/2013 23:59:59 CLS Outpatient RAY DUGAN DO [id number] 07/13/2013 15:04:00 07/13/2013 23:59:59 CLS Outpatient RAY DUGAN DO [id number] 05/27/2013 08:28:00 05/27/2013 23:59:59 CLS Outpatient RAY DUGAN DO [id number] 04/20/2013 14:33:00 04/20/2013 23:59:59 [place] [id number] 07/04/2012 10:19:00 07/04/2012 23:59:59 CLS Outpatient [id number] 07/04/2012 10:19:00 07/04/2012 23:59:59 CLS Outpatient AMPARO KONG APRN [id number] 03/19/2013 15:50:00 Document Registration
--- OUTSIDE RECORDS SUMMARY | 2018-03-12 00:41 | XMS REPORT ---
Author Author AMPARO KONG [facility] eClinicalWorks Address Unknown Phone Unavailable Care Team Providers Care Commercial Electrician Name Role Phone AMPARO KONG CP Unavailable Allergies, Adverse Reactions, Alerts Substance Reaction Event Type Seroquel rls symptoms Drug Allergy Problems Problem Type Condition Code Onset Dates Condition Status Problem Painful respiration 786.52 Active Problem Lumbago 724.2 Active Problem Pain in joint, lower leg 719.46 Active Problem Right-sided low back pain with right-sided sciatica M54.41 Active Assessment Anxiety state F41.1 Active Problem Anxiety state F41.1 Active Problem Alopecia areata L63.9 Active Problem Anxiety 300.00 Active Problem Arthritis 716.90 Active Problem Alopecia areata 704.01 Active Problem Depression 311 Active Problem Unspecified viral hepatitis C without hepatic coma 070.70 Active Problem Unspecified gastritis and gastroduodenitis without mention of hemorrhage 535.50 Active Assessment Right-sided low back pain with right-sided sciatica M54.41 Active Problem Restless legs syndrome [RLS] 333.94 [...] Instructions Start Date End Date Status Dosage Gabapentin [facility] [address]-51 300 MG Orally Three times a day Apr 21, 2015 1 capsule Lisinopril [facility] [address]-15 10 mg January 07, 2014 take 1 tablet by Oral route 1 time per day Take in am Fluoxetine ND 0 80 mg orally Once a day April 01, 2014 take 1 tablet doxepin [facility] 0 November 12, 2013 by oral route Take one 10 mg tablet daily Valium [facility] [address]-79 5 MG Orally Twice a day 1 tablet as needed Advair Diskus [facility] [address]-58 500-50 MCG/DOSE Inhalation Twice a day February 14, 2015 1 puff Albuterol Sulfate [facility] [address]-44 90 mcg/actuation January 07, 2014 2 puffs by Inhalation route every 4-6 hours as needed PRN cough or wheezing Furosemide [facility] [address]-85 40 MG Orally Once a day as needed for ankle swelling Jul 14, 2015 1 tablet Diclofenac Sodium [facility] [address]-60 75 MG Orally Twice a day Sep 12, 2015 1 tablet tramadol [facility] 0 50 mg orally 4 times a day as needed for pain Jul 08, 2014 take 1 tablet Abilify [facility] [address]-51 15 MG Orally May 24, 2014 take 1 tablet (10 mg) by oral route once daily Minoxidil [facility] [address]-25 5 % Externally Twice a day May 19, 2015 5 ml to affected area Carvedilol [facility] [address]-14 12.5 MG April 01, 2014 1 tablet by Oral route 2 times per day Parafon Forte DSC [facility] [address]-83 500 MG Orally Three times a day Jul 1 tablet Lamictal [facility] [address]-77 200 mg April 01, 2014 take 1 tablet ( 200 mg) by oral route once daily Procedures Procedure Coding System Code Date Office Visit, Est Pt., Level 3 CPT-4 69982 Sep 12, 2015 Vital Signs Date/Time: Sep 12, 2015 Temperature 98.3 F Weight 182 lbs Height 64.5 in BMI 30.75 Index Blood Pressure Diastolic 82 mmHg Blood Pressure Systolic 132 mmHg Cardiac Monitoring Heart Rate 109 bpm Results No Known Results Summary Purpose eClinicalWorks Submission
--- OUTSIDE RECORDS SUMMARY | 2018-03-12 00:41 | XMS REPORT ---
Author Author AMPARO KONG [facility] eClinicalWorks Address Unknown Phone Unavailable Care Team Providers Care Qa Test Analyst Name Role Phone AMPARO KONG CP Unavailable Allergies, Adverse Reactions, Alerts Substance Reaction Event Type Seroquel rls symptoms Drug Allergy Problems Problem Type Condition Code Onset Dates Condition Status Problem Lumbago 724.2 Active Problem Anxiety 300.00 Active Problem Arthritis 716.90 Active Problem Essential hypertension I10 Active Problem Restless legs syndrome [RLS] 333.94 Active Problem Alopecia areata L63.9 Active Assessment Right-sided low back pain with right-sided sciatica M54.41 Active Assessment Chronic obstructive pulmonary disease, unspecified COPD type J44.9 Active Problem Chronic obstructive pulmonary disease, unspecified COPD type J44.9 Active Problem Alopecia areata 704.01 Active Problem Depression 311 Active Problem Right-sided low back pain with right-sided sciatica M54.41 Active Problem Anxiety state F41.1 Active Problem Essential hypertension, benign 401.1 Active Problem Unspecified fasciitis 729.4 Active Problem Unspecified viral hepatitis C without hepatic coma 070.70 Active Problem Unspecified gastritis and gastroduodenitis without mention of hemorrhage 535.50 Active Problem Asthma, unspecified, unspecified status 493.90 Active Problem Pain in joint, shoulder region 719.41 Active Problem Obstructive chronic bronchitis, with (acute) exacerbation 491.21 Active Problem Painful respiration 786.52 Active Assessment Essential hypertension I10 Active Problem Chronic airway obstruction, not elsewhere classified 496 Active Problem Pain in joint, lower leg 719.46 Active Medications Medication Code System Code Instructions Start Date End Date Status Dosage Carvedilol [facility] [address]-49 12.5 MG April 01, 2014 1 tablet by Oral route 2 times per day Fluoxetine NDC 0 20 mg orally Once a day April 01, 2014 take 1 tablet Gabapentin [facility] [address]-22 400 MG Orally Three times a day Apr 21, 2015 1 capsule Advair Diskus [facility] [address]-19 500-50 MCG/DOSE Inhalation Twice a day February 14, 2015 1 puff Parafon Forte DSC [facility] [address]-54 500 MG Orally Three times a day Jul 1 tablet Lisinopril [facility] [address]-48 10 MG January 07, 2014 take 1.5-2 tablet by Oral route 1 time per day Take in am tramadol NDC 0 50 mg orally 4 times a day as needed for pain Jul 08, 2014 take 1 tablet Ibuprofen [facility] [address]-02 800 MG Orally Three times a day Oct 11, 2015 1 tablet Valium [facility] [address]-84 5 MG Orally Once a day 1 tablet as needed doxepin NDC 0 10 mg 2 tablets at bedtime November 12, 2013 not defined Zyprexa [facility] [address]-73 5 MG Orally Once a day 1 tablet Furosemide [facility] [address]-89 40 MG Orally Once a day as needed for ankle swelling Jul 14, 2015 1 tablet Albuterol Sulfate [facility] [address]-33 90 mcg/actuation January 07, 2014 2 puffs by Inhalation route every 4-6 hours as needed PRN cough or wheezing Procedures Procedure Coding System Code Date Office Visit, Est Pt., Level 3 CPT-4 48797 Oct 11, 2015 Vital Signs Date/Time: Oct 11, 2015 Temperature 97.1 F Weight 183 lbs Height 64.5 in BMI 30.92 Index Blood Pressure Diastolic 78 mmHg Blood Pressure Systolic 124 mmHg Cardiac Monitoring Heart Rate 83 bpm Results No Known Results Summary Purpose eClinicalWorks Submission
[2018-03-12] MEDS ORDERED: ASPIRIN 81 MG CHEW (CHILDREN'S ASA) PO ONE (00:45)
[2018-03-12] MEDS: NITROGLYCERIN 0.4 MG SL TABS BTL 25'S SL PRN ×3 (00:58→01:15)
[2018-03-12] MEDS ORDERED: RT-ALBUTEROL/IPRATROPIUM 3 ML (DUONEB) VIAL INH ONE (01:00)
[2018-03-12 01:02] LABS: BASOPHILS % (AUTO) 0 % (0-10); EOSINOPHILS # (AUTO) 0.2 10^3/uL (0.0-0.3); EOSINOPHILS % (AUTO) 2 % (0-10); HEMATOCRIT 39 % (35-52); HEMOGLOBIN 12.9 G/DL (11.5-16.0); LYMPHOCYTES # (AUTO) 3.3 X 10^3 (1.0-4.0); LYMPHOCYTES % (AUTO) 36 % (12-44); MEAN CORPUSCULAR HEMOGLOBIN 29 PG (25-34); MEAN CORPUSCULAR HGB CONC 33 G/DL (32-36); MEAN CORPUSCULAR VOLUME 86 FL (80-99); MEAN PLATELET VOLUME 9.9 FL (7.4-10.4); MONOCYTES # (AUTO) 0.9 X 10^3 (0.0-1.0); MONOCYTES % (AUTO) 10 % (0-12); NEUTROPHILS # (AUTO) 4.8 X 10^3 (1.8-7.8); NEUTROPHILS % (AUTO) 52 % (42-75); PLATELET COUNT 265 10^3/uL (130-400); RED BLOOD COUNT 4.49 10^6/uL (4.35-5.85); RED CELL DISTRIBUTION WIDTH 14.9 % (10.0-14.5); WHITE BLOOD COUNT 9.2 10^3/uL (4.3-11.0)
[2018-03-12 01:21] LABS: ALANINE AMINOTRANSFERASE 42 U/L (0-55); ALBUMIN 3.6 GM/DL (3.2-4.5); ALKALINE PHOSPHATASE 70 U/L (40-136); AMYLASE 46 U/L (25-125); BILIRUBIN,TOTAL 0.2 MG/DL (0.1-1.0); BUN/CREATININE RATIO 16; CALCIUM 9.2 MG/DL (8.5-10.1); CARBON DIOXIDE 25 MMOL/L (21-32); CHLORIDE 105 MMOL/L (98-107); CREATININE SERUM 0.73 MG/DL (0.60-1.30); GFR ESTIMATED > 60; GLUCOSE 101 MG/DL (70-105); LIPASE 28 U/L (8-78); MAGNESIUM 1.9 MG/DL (1.8-2.4); POTASSIUM 3.7 MMOL/L (3.6-5.0); SODIUM 139 MMOL/L (135-145); TOTAL PROTEIN 6.9 GM/DL (6.4-8.2)
[2018-03-12] MEDS ORDERED: COMBIVENT (01:23)
[2018-03-12] MEDS ORDERED: COREG (01:23)
[2018-03-12] MEDS ORDERED: LISINOPRIL (01:23)
[2018-03-12 01:27] LABS: MYOGLOBIN SERUM 16.4 NG/ML (10.0-92.0)
--- NOTE | 2018-03-12 01:56 | ED Chest Pain ---
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 FELT HEAVY BEHIND LUNGS THEN PAIN WENT TO LEFT SIDE 40 MIN CONTROL INSPECTOR. Nursing Sepsis Screen: No Definite Risk Source: patient Exam Limitations: no limitations History of Present Illness Date Seen by Provider: Mar 12, 2018 Time Seen by Provider: 00:40 Initial Comments Here with report of chest pain that started about 2 hours prior to arrival. This has persisted in route to the left side approximate 40 minutes prior to arrival. States that she was nauseated earlier in the morning and then throughout the day she was short of breath but thought it was just her COPD. She did do breathing treatment via [facility] as her nebulizer is still packed. She recently moved to a different trailer. Denies nausea or vomiting. States that she's had respiratory failure previously and was told that she had a heart attack at some point but has not had an evaluation other than echocardiogram. She states that was done in [place]. Does admit to taking a hydrocodone about 2- 1/2 hours ago for the pain. Timing/Duration: 1-3 hours, getting worse Severity/Quality: moderate, severe, aching, tightness Location: central, back Radiation: arms (left), shoulders (left) Activities at Onset: none Prior CP/Workup: echocardiography Modifying Factors: improves with rest ASA po CONTROL INSPECTOR: No NTG SL CONTROL INSPECTOR: No Associated Symptoms: No abdominal pain; back pain; No diaphoresis, No dizziness , No fatigue, No fever/chills, No nausea/vomiting; shortness of breath; No weakness Allergies and Home Medications Allergies Coded Allergies: No Known Drug Allergies (Unverified , 03/12/18) Patient Home Medication List Home Medication List Reviewed: Yes Review of Systems Constitutional: see HPI; No chills, No fever EENTM: No Symptoms Reported Respiratory: See HPI; Denies Cough; Wheezing Cardiovascular: Chest Pain; Denies Edema Gastrointestinal: No Symptoms Reported Genitourinary: No Symptoms Reported Musculoskeletal: see HPI, back pain; No muscle pain Skin: no symptoms reported Psychiatric/Neurological: Anxiety; Denies Weakness All Other Systems Reviewed Negative Unless Noted: Yes Past Txedbyc-Kkzlcs-Edrxah Hx Past Med/Social Hx: Reviewed Nursing Past Med/Soc Hx Patient Social History Alcohol Use: Denies Use Recreational Drug Use: Yes (CLEAN 1 YR OFF IV DRUGS) Drug of Choice: USED A HYDROCODONE Smoking Status: Current Everyday Smoker Type Used: Cigarettes 2nd Hand Smoke Exposure: Yes Recent Foreign Travel: No Contact w/Someone Who Travel: No Recent Infectious Disease Expo: No Recent Hopitalizations: No Seasonal Allergies Seasonal Allergies: No Past Medical History Surgeries: Yes Adenoidectomy, Section, Tonsillectomy Respiratory: Yes Asthma, COPD Cardiac: Yes Heart Attack, Hypertension Neurological: No Genitourinary: No Gastrointestinal: No Musculoskeletal: No Endocrine: No HEENT: No Cancer: No Psychosocial: No Anxiety, PTSD, Bipolar, Depression Integumentary: No Blood Disorders: No Family Medical History No Pertinent Family Hx Physical Exam Vital Signs Vital Signs - First Documented 03/12/18 01:14 Pulse Ox 99 Capillary Refill : Less Than 3 Seconds Height, Weight, BMI Height: 5', 1.00" Weight: 135lbs oz, [id number] Method:Stated ,BMI General Appearance: WD/WN, Anxious, Mild Distress HEENT: PERRL/EOMI, Pharynx Normal Neck: Non Tender, Supple Respiratory: No Accessory Muscle Use, Decreased Breath Sounds Cardiovascular: No Murmur, Tachycardia Gastrointestinal: Non Tender, Soft Extremity: Normal Range of Motion, Non Tender Neurologic/Psychiatric: Alert, Oriented x3 Skin: Normal Color, Warm/Dry Progress/Results/Core Measures Results/Orders Lab Results Laboratory Tests Test 03/12/18 00:55 03/12/18 01:50 Range/Units White Blood Count 9.2 4.3-11.0 10^3/uL Red Blood Count 4.49 4.35-5.85 10^6/uL Hemoglobin 12.9 11.5-16.0 G/DL Hematocrit 39 35-52 % Mean Corpuscular Volume 86 80-99 FL Mean Corpuscular Hemoglobin 29 25-34 PG Mean Corpuscular Hemoglobin Concent 33 32-36 G/DL Red Cell Distribution Width 14.9 H 10.0-14.5 % Platelet Count 265 130-400 10^3/uL Mean Platelet Volume 9.9 7.4-10.4 FL Neutrophils (%) (Auto) 52 42-75 % Lymphocytes (%) (Auto) 36 12-44 % Monocytes (%) (Auto) 10 0-12 % Eosinophils (%) (Auto) 2 0-10 % Basophils (%) (Auto) 0 0-10 % Neutrophils # (Auto) 4.8 1.8-7.8 X 10^3 Lymphocytes # (Auto) 3.3 1.0-4.0 X 10^3 Monocytes # (Auto) 0.9 0.0-1.0 X 10^3 Eosinophils # (Auto) 0.2 0.0-0.3 10^3/uL Basophils # (Auto) 0.0 0.0-0.1 10^3/uL Prothrombin Time 13.0 12.2-14.7 SEC INR Comment 1.0 0.8-1.4 Activated Partial Thromboplast Time 32 24-35 SEC D-Dimer 0.61 H 0.00-0.49 UG/ML Sodium Level 139 135-145 MMOL/L Potassium Level 3.7 3.6-5.0 MMOL/L Chloride Level 105 98-107 MMOL/L Carbon Dioxide Level 25 21-32 MMOL/L Anion Gap 9 5-14 MMOL/L Blood Urea Nitrogen 12 7-18 MG/DL Creatinine 0.73 0.60-1.30 MG/DL Estimat Glomerular Filtration Rate > 60 BUN/Creatinine Ratio 16 Glucose Level 101 70-105 MG/DL Calcium Level 9.2 8.5-10.1 MG/DL Magnesium Level 1.9 1.8-2.4 MG/DL Total Bilirubin 0.2 0.1-1.0 MG/DL Aspartate Amino Transf (AST/SGOT) 31 5-34 U/L Alanine Aminotransferase (ALT/SGPT) 42 0-55 U/L Alkaline Phosphatase 70 40-136 U/L Myoglobin 16.4 10.0-92.0 NG/ML Troponin I < 0.30 <0.30 NG/ML Total Protein 6.9 6.4-8.2 GM/DL Albumin 3.6 3.2-4.5 GM/DL Amylase Level 46 25-125 U/L Lipase 28 8-78 U/L Urine Opiates Screen POSITIVE H NEGATIVE Urine Oxycodone Screen NEGATIVE NEGATIVE Urine Methadone Screen NEGATIVE NEGATIVE Urine Propoxyphene Screen NEGATIVE NEGATIVE Urine Barbiturates Screen NEGATIVE NEGATIVE Ur Tricyclic Antidepressants Screen NEGATIVE NEGATIVE Urine Phencyclidine Screen NEGATIVE NEGATIVE Urine Amphetamines Screen POSITIVE H NEGATIVE Urine Methamphetamines Screen NEGATIVE NEGATIVE Urine Benzodiazepines Screen NEGATIVE NEGATIVE Urine Cocaine Screen NEGATIVE NEGATIVE Urine Cannabinoids Screen NEGATIVE NEGATIVE My Orders Orders - DENISSE,MIGUELITO D MD Cbc With Automated Diff (03/12/18 00:40) Magnesium (03/12/18 00:40) Chest 1 View, Ap/Pa Only (03/12/18 00:40) Ekg Tracing (03/12/18 00:40) Cardiac Profile 1 (03/12/18 00:40) Comprehensive Metabolic Panel (03/12/18 00:40) Myoglobin Serum (03/12/18 00:40) Protime With Inr (03/12/18 00:40) Partial Thromboplastin Time (03/12/18 00:40) O2 (03/12/18 00:40) Monitor-Rhythm Ecg Trace Only (03/12/18 00:40) Lipid Panel (03/13/18 06:00) Aspirin Chewable Tablet (Baby Aspirin Ch (03/12/18 00:45) Saline Lock/Iv-Start (03/12/18 00:40) Lipase (03/12/18 00:40) Amylase (03/12/18 00:40) Drug Screen Stat (Urine) (03/12/18 00:47) Nitroglycerin 0.4 Mg Btl 25's (Nitrostat (03/12/18 01:00) Fibrin Degradation Products (03/12/18 00:47) Albuterol/Ipra Inhalation Soln (Duoneb I (03/12/18 01:00) Svn Small Volume Nebulizer (03/12/18 00:47) Morphine Injection (Morphine Injection (03/12/18 02:48) Medications Given in ED Current Medications Medications Dose Ordered Sig/Darwin Route Start Time Stop Time Status Last Admin Dose Admin Albuterol/ Ipratropium 3 ml ONCE ONCE INH 03/12/18 01:00 03/12/18 01:01 DC 03/12/18 01:13 3 ML Aspirin 324 mg ONCE ONCE PO 03/12/18 00:45 03/12/18 00:46 DC 03/12/18 00:46 324 MG Nitroglycerin 0.4 mg UD PRN SL 03/12/18 01:00 03/12/18 01:16 DC 03/12/18 01:15 0.4 MG Vital Signs/I&O 03/12/18 03/12/18 03/12/18 00:38 00:38 01:14 Temp 98.6 Pulse 114 Resp 20 B/P (MAP) 130/103 (112) Pulse Ox 99 O2 Delivery Room Air Room Air Room Air Blood Pressure Mean: 112 Progress Progress Note : Progress Note Seen and evaluated. IV, labs, EKG and chest x-ray ordered. ASA 324 mg by mouth ordered. Nitroglycerin sublingual ordered and given 3. Pain went from 8 -3. DuoNeb ordered. Monitor patient. We will check UA and UDS as well. Monitor patient. 0150: Pain still 3 out of 10 but resting comfortably. UA obtained. Troponin still pending. 0245: Patient still with pain. Morphine 2 mg IV ordered. Have reviewed the patient's labs. Troponin is negative. Patient has history of possible previous heart attack as well as family history with mother dying at age 41 of a heart attack. Given persistent pain and family history as well as patient's personal history, further evaluation is indicated. 0249: I did discuss the case with Dr. Gonzales. She accepts patient for admission, observation status. Cardiology consult in the a.m. Patient and family agree with plan. Initial ECG Impression Date: Mar 12, 2018 Initial ECG Impression Time: 00:38 Initial ECG Rate: 97 Initial ECG Rhythm: Normal Sinus Initial ECG Comparisson: No Previous ECG Available Comment Sinus rhythm with left axis deviation. No evidence of ST elevation [place]. Left atrial abnormality noted. No previous available for comparison. Interpreted by me. Diagnostic Imaging Diagonstic Imaging: Xray Plain Films/CT/US/NM/MRI: chest Comments Portable 1 view chest shows no acute findings. Reviewed: Reviewed by Me Departure Communication (Admissions) Time/Spoke to Admitting Phy: 02:49 Impression Primary Impression: Chest pain Qualified Codes: R07.9 - Chest pain, unspecified Disposition: ADMITTED INPATIENT Condition: Stable Admissions Decision to Admit Reason: Admit from ER (General) Decision to Admit/Date: Mar 12, 2018 Time/Decision to Admit Time: 02:49 Departure-Patient Inst. Referrals: NO,LOCAL PHYSICIAN (PCP/Family) Primary Care Physician MIGUELITO SALCEDO MD Mar 12, 2018 01:56
[2018-03-12 02:13] LABS: AMPHETAMINE SCREEN, URINE POSITIVE (NEGATIVE); BARBITURATE SCREEN URINE NEGATIVE (NEGATIVE); BENZODIAZEPINES SCREEN URINE NEGATIVE (NEGATIVE); CANNABINOID SCREEN, URINE NEGATIVE (NEGATIVE); COCAINE SCREEN URINE NEGATIVE (NEGATIVE); METHADONE STAT NEGATIVE (NEGATIVE); METHAMPHETAMINE SCREEN URINE S NEGATIVE (NEGATIVE); OPIATE SCREEN URINE POSITIVE (NEGATIVE); OXYCODONE STAT NEGATIVE (NEGATIVE); PROPOXYPHENE STAT NEGATIVE (NEGATIVE); TRICYCLIC ANTIDEPRESSANTS SCRE NEGATIVE (NEGATIVE)
[2018-03-12] MEDS ORDERED: morphine INJ 10 MG/ML 1ML (SYR OR VIAL) IVP STA (02:48)
--- OUTSIDE RECORDS SUMMARY | 2018-03-12 04:09 | XMS REPORT | Continuity of Care Document ---
Author Author [facility] Address Unknown Phone Unavailable Allergies Active [...] DUGAN DOA K 309.81 AN PTSD 02/12/2011 CSAE DUGAN DOA K 296.33 MO DEPRESSIVE RECURRENT SEVERE W/O PSYCHOTIC BEHAVIOR 02/12/2011 CASE UDGAN DOA K 309.81 AN PTSD 02/12/2011 AMPARO KONG APRN 296.33 MO DEPRESSIVE RECURRENT SEVERE W/O PSYCHOTIC BEHAVIOR 02/12/2011 AMPARO KONG APRN 309.81 AN PTSD 02/12/2011 AMPARO [...] K 333.94 RESTLESS LEGS SYNDROME (RLS) 05/27/2013 DUGNA DO, RAY K 333.94 RESTLESS LEGS SYNDROME [...] R 401.1 HYPERTENSION, BENIGN ESSENTIAL 11/12/2013 KONG HAIRSPRING CUTTERAMPARO 729.4 PLANTAR FASCIITIS 11/12/2013 DUGAN DO, RAY [...] Procedures Code [place] [address] INFLUENZA A & B (IN-HOUSE) 08/12/2013 66904 XRAY FOOT RIGHT COMP MIN 3 VIEWS 12/10/2013 Podiatry Ana Dudley 12/10/2013 35796 EKG, TRACING (IN-HOUSE) 01/07/2014 22787 HEMOGLOBIN (IN-HOUSE) 04/01/2014 75730 ROUTINE VENIPUNCTURE 05/24/2014 [id number] GFR CALC (RESULT ONLY) 05/24/2014 12718 CMP 05/24/2014 04958 HEP C PCR QUANT W/CLEO 05/27/2014 Results There is no data. Encounters ACCT No. Visit Date/Time Discharge Status Pt. Type Provider Facility Loc./Unit Complaint [id number] 12/01/2014 09:24:00 12/01/2014 23:59:59 [facility] Outpatient RAY DUGAN DO [id number] 07/08/2014 10:35:00 07/08/2014 23:59:59 [facility] Outpatient RAY DUGAN DO [id number] 06/02/2014 10:33:00 06/02/2014 23:59:59 CLS Outpatient RAY DUGAN DO [id number] 04/01/2014 09:01:00 04/01/2014 23:59:59 CLS Outpatient RAY DUGAN DO [id number] 01/07/2014 11:08:00 01/07/2014 23:59:59 [facility] Outpatient AMPARO KONG APRN [id number] 12/10/2013 09:37:00 12/10/2013 23:59:59 [facility] Outpatient AMPARO KONG APRN [id number] 11/12/2013 09:07:00 11/12/2013 23:59:59 CLS Outpatient RAY DUGAN DO [id number] 08/12/2013 14:11:00 08/12/2013 23:59:59 CLS Outpatient RAY DUGAN DO [id number] 07/13/2013 15:04:00 07/13/2013 23:59:59 CLS Outpatient RAY DUGAN DO [id number] 05/27/2013 08:28:00 05/27/2013 23:59:59 CLS Outpatient RAY DUGAN DO [id number] 04/20/2013 14:33:00 04/20/2013 23:59:59 [place] [id number] 07/04/2012 10:19:00 07/04/2012 23:59:59 CLS Outpatient [id number] 07/04/2012 10:19:00 07/04/2012 23:59:59 CLS Outpatient AMPARO KONG APRN [id number] 03/19/2013 15:50:00 Document Registration
[2018-03-12] MEDS: NS IV 1000 ML 1,000 ML IV SCH ×2 (04:59→18:31)
[2018-03-12] MEDS ORDERED: NITROGLYCERIN 0.4 MG SL TABS BTL 25'S SL PRN (05:00)
[2018-03-12] MEDS: CATHETER FLUSH 10 ML SYR IV SCH ×3 (05:00→21:18)
[2018-03-12] MEDS ORDERED: CATHETER FLUSH 10 ML SYR IV PRN (05:00)
[2018-03-12] MEDS ORDERED: morphine INJ 4 MG/ML 1 ML (VIAL/SYRINGE) IV PRN (05:00)
[2018-03-12] MEDS ORDERED: RT-ALBUTEROL/IPRATROPIUM 3 ML (DUONEB) VIAL INH PRN (05:00)
[2018-03-12] MEDS: RT-ALBUTEROL/IPRATROPIUM 3 ML (DUONEB) VIAL INH SCH ×2 (07:25→18:56)
[2018-03-12 07:45] LABS: CHOLESTEROL 171 MG/DL (< 200); CREATINE KINASE 32 U/L (29-168); HDL CHOLESTEROL 52 MG/DL (40-60); TRIGLYCERIDES 138 MG/DL (<150); VLDL CHOLESTEROL 28 MG/DL (5-40)
[2018-03-12 07:52] LABS: MYOGLOBIN SERUM 13.6 NG/ML (10.0-92.0)
--- NOTE | 2018-03-12 08:22 | Diagnostic Imaging Report ---
INDICATION: Chest pain. TECHNIQUE: Single view chest 1:13 AM. CORRELATION STUDY: 06/15/2010 FINDINGS: Heart size, mediastinum and vasculature generally stable. The lungs are clear with no consolidating infiltrate. There is no significant effusion or pneumothorax. IMPRESSION: 1. Generally stable portable chest demonstrates no acute abnormality. Dictated by: Dictated on workstation # [id number]
[2018-03-12] MEDS: ASPIRIN E.C. 81 MG (ECOTRIN) TAB PO SCH (09:16)
[2018-03-12] MEDS: KETOROLAC 30 MG/ML VIAL IVP PRN ×2 (11:02→19:38)
[2018-03-12] MEDS ORDERED: IOHEXOL 350 MG/ML 150 ML (OMNIPAQUE 350) VIAL IV ONE (13:45)
[2018-03-12] MEDS ORDERED: NS 100 ML (IVPB) BAG IV ONE (13:45)
--- NOTE | 2018-03-12 14:32 | Diagnostic Imaging Report ---
PROCEDURE: CT angiography of the chest with contrast. TECHNIQUE: Multiple contiguous axial images were obtained through the chest after uneventful bolus administration of intravenous contrast. Reconstructed CTA MIP acquisitions were also performed. INDICATION: Chest pain with shortness of breath. FINDINGS: There are no intraluminal pulmonary arterial filling defects. There are no findings of pulmonary arterial embolus. There is bibasilar dependent partial atelectasis. The heart size is within normal limits. There is no pleural or pericardial effusion. No lung mass or thoracic lymphadenopathy. No acute chest wall pathology. The upper abdomen appears nonacute. IMPRESSION: Dependent atelectasis. Negative for PE or other acute abnormalities. Dictated by: Dictated on workstation # [id number]
--- NOTE | 2018-03-12 19:33 | Consultation-Cardiology ---
HPI-Cardiology Cardiology Consultation: Date of Consultation 03/12/18 Date of Admission Attending Physician Georgia Gonzales MD Admitting Physician [facility] Consulting Physician David CUELLAR MD HPI: Time Seen by Provider: 12:45 Chief Complaint: Chest pain This is a 47-year-old female with history of known history of active smoking, family history of premature CAD, previous IV drug abuse. She presents with prolonged episode of chest pain which radiated to the left arm. Moderate intensity. Described it as achiness. No significant associated factors however she has history of COPD and she used her nebulizer or shortness of breath. Review of Systems-Cardiology Review of Systems Constitutional: No As described under HPI, No no symptoms reported, No chills, No fever, No lightheadedness, No malaise, No tiredness, No weight loss, No weight gain, No other Eyes: No As described under HPI, No no symptoms reported, No blindness, No blurred vision, No contact lenses, No drainage, No decreased acuity, No foreign body sensation, No glasses, No inflammation, No pain, No photophobia, No previous injury, No shadows, No tunnel vision, No other, No vision change Ears/Nose/Throat: No As described under HPI, No no symptoms reported, No chronic hearing loss, No epistaxis, No ear discharge, No ear pain, No loose teeth, No mouth pain, No mouth swelling, No nasal drainage, No nose pain, No recent hearing loss, No throat pain, No throat swelling, No ulcerations, No other Respiratory: No no symptoms reported, No As described under HPI, No cough, No orthopnea; shortness of breath; No SOB with excertion, No SOB at rest, No stridor, No wheezing, No other Cardiovascular: No no symptoms reported, No As described under HPI; chest pain ; No edema, No irregular heart rate, No lightheadedness, No palpitations, No syncope, No other Gastrointestinal: No no symptoms reported, No As described under HPI, No abdomen distended, No abdominal pain, No blood streaked bowels, No constipation , No diarrhea, No difficulty swallowing, No nausea, No poor appetite, No poor fluid intake, No rectal bleeding, No vomiting, No other, No nausea/vomiting/ diarrhea, No stool coloration changes Genitourinary: No no symptoms reported, No As described under HPI, No burning, No dysuria, No discharge, No frequency, No flank pain, No hematuria, No incontinence, No pain, No urgency, No other, No urine frequency changes, No urine coloration changes Musculoskeletal: No no symptoms reported, No As describe under HPI, No back pain, No gout, No joint pain, No joint swelling, No muscle pain, No muscle stiffness, No neck pain, No other Skin: No no symptoms reported, No As described under HPI, No change in color, No change in hair/nails, No dryness, No lesions, No lumps, No rash, No other, No skin related problems, No ulcerations, No rash on exposed areas, No ulcerations on exposed areas Psychiatric/Neurological: No no symptoms reported, No As described under HPI, No anxiety, No depression, No emotional problems, No headache, No numbness, No pre-existing deficit, No seizure, No tingling, No tremors, No weakness, No other , No focal weakness, No syncope All Other Systems Reviewed Negative Unless Noted: Yes [id number] Hx Patient Social History Alcohol Use: Denies Use Recreational Drug Use: Yes (CLEAN 1 YR OFF IV DRUGS) Drug of Choice: USED A HYDROCODONE Smoking Status: Current Everyday Smoker Type Used: Cigarettes 2nd Hand Smoke Exposure: Yes Recent Foreign Travel: No Recent Infectious Disease Expo: No Hospitalization with Isolation: Denies Past Medical History PMH As described under Assessment. Family Medical History Family History: Myocardial infarction 19 MOTHER Allergies and Home Medications Allergies Coded Allergies: No Known Drug Allergies (Unverified , 03/12/18) Home Medications No Active Prescriptions or Reported Meds Patient Home Medication List Home Medication List Reviewed: Yes Physical Exam-Cardiology Physical Exam Vital Signs/I&O 03/12/18 03/12/18 03/12/18 03/12/18 08:13 08:30 09:30 11:55 Temp 96.5 96.9 96.8 Pulse 88 81 83 Resp 22 18 20 B/P (MAP) 109/77 (88) 93/65 (74) 120/80 (93) Pulse Ox 99 98 98 O2 Delivery Room Air Room Air Room Air Room Air 03/12/18 03/12/18 03/12/18 13:00 15:30 18:57 Temp 97.5 Pulse 82 100 Resp 20 B/P (MAP) 139/87 (104) Pulse Ox 100 95 O2 Delivery Room Air Room Air Capillary Refill : Less Than 3 Seconds Constitutional: AAO x 3 HEENT: PERRL; No normal ENT inspection, No TMs normal, No pharynx normal, No scleral icterus (R), No scleral icterus (L), No pale conjunctivae (R), No pale conjunctivae (L), No photophobia, No TM abnormal (R), No TM abnormal (L), No pharyngeal erythema, No tonsillar exudate, No other, No discharge, No EOMI; hearing is well preserved; No hard of hearing; oral hygience is good; No ulceration, No xanthelasmas are seen Neck: No non-tender, No full range of motion, No supple, No normal inspection, No carotid bruit, No limited range of motion, No lymphadenopathy (R), No lymphadenopathy (L), No tender lateral, No tender midline, No thyromegaly, No other; carotid pulses are 2 + bilaterally; No with good upstrokes Respiratory: chest is bilaterally symmetric, lungs clear to auscultation Cardiovascular: regular rate-rhythm; No irregularly irregular, No extra beats, No parasternal heave is noted, No JVD, No edema, No bradycardia, No tachycardia , No point of maximal impulse, No cardiac thrills are palpable; S1 and S2; No gallop/S3, No gallop/S4, No diastolic murmur, No systolic murmur, No friction rub, No click, No other Gastrointestinal: No tender, No soft, No round, No distended, No pulsatile mass , No organomegaly, No guarding, No rebound, No tenderness, No hernia, No mass, No audible bowel sounds, No abnormal bowel sounds, No abdominal bruits, No spleenomegaly, No other Rectal: deferred Extremities: No normal range of motion, No non-tender, No normal inspection, No pedal edema, No calf tenderness, No normal capillary refill, No pelvis stable , No calf tenderness, No inflammation, No pedal edema, No slow capillary refill , No swelling, No other, No abrasion, No clubbing, No cyanosis, No ecchymosis, No laceration, No no lower extremity edema bilateral, No significant edema, No tenderness, No wound Neurologic/Psychiatric: alert, oriented x 3, power is 5/5 both on sides Skin: No normal color, No warm/dry, No cyanosis, No cool, No diaphoresis, No damp, No ecchymosis, No jaundice, No mottled, No pallor, No rash, No tattoos/ piercings, No ulcerations, No rash on exposed areas, No ulcerations on exposed areas, No other Data Review Labs Laboratory Tests 03/12/18 00:55: White Blood Count 9.2, Red Blood Count 4.49, Hemoglobin 12.9, Hematocrit 39, Mean Corpuscular Volume 86, Mean Corpuscular Hemoglobin 29, Mean Corpuscular Hemoglobin Concent 33, Red Cell Distribution Width 14.9H, Platelet Count 265, Mean Platelet Volume 9.9, Neutrophils (%) (Auto) 52, Lymphocytes (%) (Auto) 36, Monocytes (%) (Auto) 10, Eosinophils (%) (Auto) 2, Basophils (%) (Auto) 0, Neutrophils # (Auto) 4.8, Lymphocytes # (Auto) 3.3, Monocytes # (Auto) 0.9, Eosinophils # (Auto) 0.2, Basophils # (Auto) 0.0, Prothrombin Time 13.0, INR Comment 1.0, Activated Partial Thromboplast Time 32, D-Dimer 0.61H, Sodium Level 139, Potassium Level 3.7, Chloride Level 105, Carbon Dioxide Level 25, Anion Gap 9, Blood Urea Nitrogen 12, Creatinine 0.73, Estimat Glomerular Filtration Rate > 60, BUN/Creatinine Ratio 16, Glucose Level 101, Calcium Level 9.2, Magnesium Level 1.9, Total Bilirubin 0.2, Aspartate Amino Transf (AST/SGOT ) 31, Alanine Aminotransferase (ALT/SGPT) 42, Alkaline Phosphatase 70, Myoglobin 16.4, Troponin I < 0.30, Total Protein 6.9, Albumin 3.6, Amylase Level 46, Lipase 28 03/12/18 01:50: Urine Opiates Screen POSITIVEH, Urine Oxycodone Screen NEGATIVE, Urine Methadone Screen NEGATIVE, Urine Propoxyphene Screen NEGATIVE, Urine Barbiturates Screen NEGATIVE, Ur Tricyclic Antidepressants Screen NEGATIVE, Urine Phencyclidine Screen NEGATIVE, Urine Amphetamines Screen POSITIVEH, Urine Methamphetamines Screen NEGATIVE, Urine Benzodiazepines Screen NEGATIVE, Urine Cocaine Screen NEGATIVE, Urine Cannabinoids Screen NEGATIVE 03/12/18 07:08: Myoglobin 13.6, Troponin I < 0.30, Total Creatine Kinase 32, Triglycerides Level 138, Cholesterol Level 171, LDL Cholesterol Direct 110, VLDL Cholesterol 28, HDL Cholesterol 52 ECG Impression ECG Initial ECG Rhythm: Normal Sinus Initial ECG Impression: Nonspecific Changes A/P-Cardiology Assessment/Admission Diagnosis Chest pain, Active smoking, History of IV drug abuse, Positive urinary screen for opiates and met-amphetamine Plan This is a 47-year-old lady with active smoking, family history of premature CAD who presents with prolonged episode of chest pain. Negative serial troponin and EKG. We'll request an echocardiogram and nuclear stress test. Further evaluation and treatment based on the results of the echocardiogram and nuclear stress test. Strongly recommended to quit smoking. Thank you for your consultation. Please call me if you have any questions. Naheed Cuellar MD, FACP, FACC, FSCAI, FHRS, CCDS Interventional Cardiology Cardiac Electrophysiology Vascular Medicine and Endovascular Interventions Clinical Quality Measures AMI/AHF: ASA po Prior to arrival: No DVT/VTE Risk/Contraindication: Risk Factor Score Per Nursin RFS Level Per Nursing on Admit: 4+=Very High David CUELLAR MD Mar 12, 2018 7:33 pm
--- NOTE | 2018-03-12 20:42 | History & Physicial (CHS) ---
HPI History of Present Illness: 47 yo female presented to ER with chest pain. She states that she was out in the heat and thought she was getting chest heaviness due to that, but sat in the air conditioning in her trailer for a while and continued to get worse, so she came in. She does have a history of asthma/COPD and was previously on Combivent and Advair, but has been out of Advair for quite some time. She has still been using Combivent. She had moved away for a period of time and wasn't taking any of her medications, including her psychiatric medications fluoxetine and lamotrigine for her PTSD. She has been overall feeling poorly the last few weeks to month with difficulty with congested sounding cough, worsening shortness of breath and generalized body aches. She did have respiratory failure leading to what sounds like intubation for a prolonged period in 2004 and was told she had a heart attack in the past- maybe associated with that episode but she does not recall it. She does have a history of alcoholism and her last drink was years ago when she had interferon treatment for her hepatitis C. She did however continue to use other substances, including intravenous methamphetamine, reports last use IV was about 13 months ago and last use of any illicit substances 12 months ago. She did take a hydrocodone that she had left from some time in the past for her chest pain. Date seen by provider: Mar 12, 2018 Time Seen by Provider: 10:25 Attending Physician Jaun Gonzales MD PCP [facility] Consult Date of Admission Mar 12, 2018 at 2:50 am Home Medications Home Medications Reviewed patient Home Medication Reconciliation performed by pharmacy medication reconciliations engine emission technician and/or nursing. Patients Allergies have been reviewed. Allergies Coded Allergies: No Known Drug Allergies (Unverified , 03/12/18) [id number]-Uxsypq Hx Patient Social History Alcohol Use: Past History Recreational Drug Use: Yes (History of IV substance use, last in 2016) Smoking Status: Current Everyday Smoker Type Used: Cigarettes 2nd Hand Smoke Exposure: Yes Recent Foreign Travel: No Contact w/other who traveled: No Recent Hopitalizations: No Recent Infectious Disease Expo: No Past Medical History PMHx: PTSD Hepatitis C (treated and cleared) COPD Substance use (last reported use January 2017) History of alcoholosim in remission SurgHx: Tonsillectomy C section x 4 Family Medical History Family History: Myocardial infarction 19 MOTHER Review of Systems ([facility]C) Constitutional: malaise Respiratory: cough, short of breath Cardiovascular: chest pain Gastrointestinal: No constipation, No diarrhea; nausea, vomiting (2 days ago x 1) Genitourinary: No dysuria Musculoskeletal: muscle pain Skin: No rash Psychiatric/Neurological: Anxiety, Depressed Reviewed Test Results Reviewed Test Results Lab Laboratory Tests Test 03/12/18 00:55 03/12/18 01:50 03/12/18 07:08 Range/Units White Blood Count 9.2 4.3-11.0 10^3/uL Red Blood Count 4.49 4.35-5.85 10^6/uL Hemoglobin 12.9 11.5-16.0 G/DL Hematocrit 39 35-52 % Mean Corpuscular Volume 86 80-99 FL Mean Corpuscular Hemoglobin 29 25-34 PG Mean Corpuscular Hemoglobin Concent 33 32-36 G/DL Red Cell Distribution Width 14.9 H 10.0-14.5 % Platelet Count 265 130-400 10^3/uL Mean Platelet Volume 9.9 7.4-10.4 FL Neutrophils (%) (Auto) 52 42-75 % Lymphocytes (%) (Auto) 36 12-44 % Monocytes (%) (Auto) 10 0-12 % Eosinophils (%) (Auto) 2 0-10 % Basophils (%) (Auto) 0 0-10 % Neutrophils # (Auto) 4.8 1.8-7.8 X 10^3 Lymphocytes # (Auto) 3.3 1.0-4.0 X 10^3 Monocytes # (Auto) 0.9 0.0-1.0 X 10^3 Eosinophils # (Auto) 0.2 0.0-0.3 10^3/uL Basophils # (Auto) 0.0 0.0-0.1 10^3/uL Prothrombin Time 13.0 12.2-14.7 SEC INR Comment 1.0 0.8-1.4 Activated Partial Thromboplast Time 32 24-35 SEC D-Dimer 0.61 H 0.00-0.49 UG/ML Sodium Level 139 135-145 MMOL/L Potassium Level 3.7 3.6-5.0 MMOL/L Chloride Level 105 98-107 MMOL/L Carbon Dioxide Level 25 21-32 MMOL/L Anion Gap 9 5-14 MMOL/L Blood Urea Nitrogen 12 7-18 MG/DL Creatinine 0.73 0.60-1.30 MG/DL Estimat Glomerular Filtration Rate > 60 BUN/Creatinine Ratio 16 Glucose Level 101 70-105 MG/DL Calcium Level 9.2 8.5-10.1 MG/DL Magnesium Level 1.9 1.8-2.4 MG/DL Total Bilirubin 0.2 0.1-1.0 MG/DL Aspartate Amino Transf (AST/SGOT) 31 5-34 U/L Alanine Aminotransferase (ALT/SGPT) 42 0-55 U/L Alkaline Phosphatase 70 40-136 U/L Myoglobin 16.4 13.6 10.0-92.0 NG/ML Troponin I < 0.30 < 0.30 <0.30 NG/ML Total Protein 6.9 6.4-8.2 GM/DL Albumin 3.6 3.2-4.5 GM/DL Amylase Level 46 25-125 U/L Lipase 28 8-78 U/L Urine Opiates Screen POSITIVE H NEGATIVE Urine Oxycodone Screen NEGATIVE NEGATIVE Urine Methadone Screen NEGATIVE NEGATIVE Urine Propoxyphene Screen NEGATIVE NEGATIVE Urine Barbiturates Screen NEGATIVE NEGATIVE Ur Tricyclic Antidepressants Screen NEGATIVE NEGATIVE Urine Phencyclidine Screen NEGATIVE NEGATIVE Urine Amphetamines Screen POSITIVE H NEGATIVE Urine Methamphetamines Screen NEGATIVE NEGATIVE Urine Benzodiazepines Screen NEGATIVE NEGATIVE Urine Cocaine Screen NEGATIVE NEGATIVE Urine Cannabinoids Screen NEGATIVE NEGATIVE Total Creatine Kinase 32 29-168 U/L Triglycerides Level 138 <150 MG/DL Cholesterol Level 171 < 200 MG/DL LDL Cholesterol Direct 110 1-129 MG/DL VLDL Cholesterol 28 5-40 MG/DL HDL Cholesterol 52 40-60 MG/DL Radiology CXR 03/12 no acute abnormalities Physical Exam-([facility]) Physical Exam Vital Signs VS - Last 72 Hours, by Label 03/12/18 03/12/18 03/12/18 03/12/18 00:38 00:38 01:14 03:45 Temp 98.6 98.6 Pulse 114 98 Resp 20 20 B/P (MAP) 130/103 (112) 128/94 (112) Pulse Ox 99 99 O2 Delivery Room Air Room Air Room Air Room Air 03/12/18 03/12/18 03/12/18 03/12/18 03:54 04:30 04:43 04:45 Temp 98.1 98.2 Pulse 78 114 87 Resp 16 18 B/P (MAP) 129/85 (100) 137/86 (103) Pulse Ox 98 97 98 O2 Delivery Room Air Room Air Room Air 03/12/18 03/12/18 03/12/18 03/12/18 04:50 05:00 05:15 05:30 Pulse 83 88 88 86 Resp 18 16 18 B/P (MAP) 130/84 (99) 130/84 (99) 121/82 (95) Pulse Ox 98 99 97 O2 Delivery Room Air Room Air Room Air 03/12/18 03/12/18 03/12/18 03/12/18 06:36 07:00 07:27 07:30 Pulse 79 79 97 Resp 16 B/P (MAP) 117/79 (92) 112/78 (89) Pulse Ox 97 97 92 O2 Delivery Room Air Room Air 03/12/18 03/12/18 03/12/18 03/12/18 08:13 08:30 09:30 11:55 Temp 96.5 96.9 96.8 Pulse 88 81 83 Resp 22 18 20 B/P (MAP) 109/77 (88) 93/65 (74) 120/80 (93) Pulse Ox 99 98 98 O2 Delivery Room Air Room Air Room Air Room Air 03/12/18 03/12/18 03/12/18 03/12/18 13:00 15:30 18:57 19:00 Temp 97.5 Pulse 82 100 102 Resp 20 B/P (MAP) 139/87 (104) Pulse Ox 100 95 O2 Delivery Room Air Room Air Capillary Refill : Less Than 3 Seconds General Appearance: WD/WN Respiratory: lungs clear, no respiratory distress, other (chest tender to palpation, especially on left) Cardiovascular: regular rate, rhythm, no edema, no murmur Gastrointestinal: normal bowel sounds, soft Neurologic/Psychiatric: alert, depressed affect (tearful) Skin: normal color, warm/dry Assessment/Plan Assessment/Plan Admission Dx Chest pain Admission Status: Observation (1) Chest pain Status: Acute Assessment & Plan: Reproducible. Troponin negative. Possible history of NH in past. Cardiology consulted, appreciate recommendations. Qualifiers: Qualified Codes: R07.9 - Chest pain, unspecified (2) Elevated d-dimer Status: Acute Assessment & Plan: Given chest pain and shortness of breath, will check CTA chest for PE (3) COPD (chronic obstructive pulmonary disease) Status: Chronic Assessment & Plan: RT protocol (4) PTSD (post-traumatic stress disorder) Status: Chronic Assessment & Plan: Needing to get restarted on medications and reestablish with behavioral health. Will look at clinic records for previous medication/ dosages. (5) History of substance abuse Status: Chronic Assessment & Plan: Denies use in last 13 months, discussed positive amphetamine on urine drug screen, she does not have any known source. Clinical Quality Measures AMI/AHF: ASA po Prior to arrival: No DVT/VTE Risk/Contraindication: Risk Factor Score Per Nursin RFS Level Per Nursing on Admit: 4+=Very High JAUN GONZALES MD Mar 12, 2018 8:42 pm
[2018-03-13] VITALS (7 sets, daily range): BP systolic 135–153; BP diastolic 75–95
[2018-03-13] MEDS: KETOROLAC 30 MG/ML VIAL IVP PRN (05:34)
[2018-03-13] MEDS: CATHETER FLUSH 10 ML SYR IV SCH ×2 (06:06→13:48)
[2018-03-13 06:44] LABS: CHOLESTEROL 163 MG/DL (< 200); HDL CHOLESTEROL 46 MG/DL (40-60); TRIGLYCERIDES 121 MG/DL (<150); VLDL CHOLESTEROL 24 MG/DL (5-40)
[2018-03-13] MEDS: RT-ALBUTEROL/IPRATROPIUM 3 ML (DUONEB) VIAL INH SCH (06:48)
[2018-03-13] MEDS: ASPIRIN E.C. 81 MG (ECOTRIN) TAB PO SCH (07:23)
[2018-03-13] MEDS: NS IV 1000 ML 1,000 ML IV SCH (07:31)
[2018-03-13] MEDS ORDERED: REGADENOSON 0.4 MG/5 ML SYR (LEXISCAN) IV ONE ×2 (08:56→09:45)
[2018-03-13] MEDS ORDERED: FLUoxetine HCL 20 MG (PROzac) CAP PO SCH (09:00)
--- NOTE | 2018-03-13 12:43 | Cardiology Progress Note ---
Cardiology SOAP Progress Note Subjective: No further chest pain. Objective: I&O/Vital Signs 03/13/18 03/13/18 03/13/18 03/13/18 04:02 06:52 07:00 08:00 Temp 98.3 98.1 Pulse 69 87 94 Resp 18 18 B/P (MAP) 153/80 (104) 152/87 (108) Pulse Ox 97 96 97 O2 Delivery Room Air Room Air Room Air 03/13/18 03/13/18 03/13/18 03/13/18 08:05 09:39 09:46 12:00 Temp 98.1 Pulse 86 111 104 Resp 20 22 B/P (MAP) 140/95 (110) 137/92 (107) 139/89 (106) Pulse Ox 97 98 O2 Delivery Room Air Room Air Room Air 03/13/18 13:00 Pulse 97 03/13/18 00:00 Intake Total 2180 ml Output Total 1750 ml Balance 430 ml Weight (Pounds): 187 Weight (Ounces): 4.0 Weight (Calculated Kilograms): [id number] Constitutional: AAO x 3 Respiratory: chest is bilaterally symmetric, lungs clear to auscultation Cardiovascular: regular rate-rhythm; No irregularly irregular, No extra beats, No parasternal heave is noted, No JVD, No edema, No bradycardia, No tachycardia , No point of maximal impulse, No cardiac thrills are palpable; S1 and S2; No gallop/S3, No gallop/S4, No diastolic murmur, No systolic murmur, No friction rub, No click, No other Gastrointestional: No tender, No soft, No round, No distended, No pulsatile mass, No organomegaly, No guarding, No rebound, No tenderness, No hernia, No mass, No audible bowel sounds, No abnormal bowel sounds, No abdominal bruits, No spleenomegaly, No other Extremities: No normal range of motion, No non-tender, No normal inspection, No pedal edema, No calf tenderness, No normal capillary refill, No pelvis stable , No calf tenderness, No inflammation, No pedal edema, No slow capillary refill , No swelling, No other, No abrasion, No clubbing, No cyanosis, No ecchymosis, No laceration, No no lower extremity edema bilateral, No significant edema, No tenderness, No wound Neurologic/Psychiatric: alert, oriented x 3, power is 5/5 both on sides Skin: No normal color, No warm/dry, No cyanosis, No cool, No diaphoresis, No damp, No ecchymosis, No jaundice, No mottled, No pallor, No rash, No tattoos/ piercings, No ulcerations, No rash on exposed areas, No ulcerations on exposed areas, No other Results/Procedures: Labs Laboratory Tests 03/13/18 05:27: Triglycerides Level 121, Cholesterol Level 163, LDL Cholesterol Direct 101, VLDL Cholesterol 24, HDL Cholesterol 46 A/P: Assessment/Dx: Chest pain, Active smoking, History of IV drug abuse, Positive urinary screen for opiates and met-amphetamine Plan: This is a 47-year-old lady with active smoking, family history of premature CAD who presents with prolonged episode of chest pain. Negative serial troponin and EKG. Lexiscan nuclear stress test done today showed normal wall motion and LV function. Normal perfusion during stress and rest. Patient can be discharged to follow-up with primary care physician. Strongly recommended to quit smoking. Thank you for your consultation. Please call me if you have any questions. Naheed Cuellar MD, FACP, FACC, FSCAI, FHRS, CCDS Interventional Cardiology Cardiac Electrophysiology Vascular Medicine and Endovascular Interventions Clinical Quality Measures AMI/AHF: ASA po Prior to arrival: David Manzo MD Mar 13, 2018 12:43 pm
[2018-03-13] MEDS ORDERED: TIOT4MIS2 IH (14:46)
[2018-03-13] MEDS ORDERED: FLUT1DIS26 IH (14:46)
[2018-03-13] MEDS ORDERED: RT-ALBUINH IH (14:46)
[2018-03-13] MEDS ORDERED: FLUO20CA25 PO (14:46)
--- NOTE | 2018-03-13 14:48 | Discharge Instructions ---
Discharge Inst-[facility] Discharge Medications New, Converted or Re-Newed RX: Transmitted to Pharmacy New Medications: Albuterol Sulfate (Proventil Hfa) 6.7 Gm Hfa.aer.ad 2 PUFF IH Q6H PRN for SHORTNESS OF BREATH, #1 INHALER 0 Refills Fluticasone/Salmeterol (Advair 250-50 Diskus) 1 Each Blst.w.dev 1 EACH IH BID, #1 INH 0 Refills Tiotropium [place] (Spiriva Respimat 2.5MCG/ACTUATION) 4 Gm Mist.inhal 2 PUFF IH DAILY, #1 INH 0 Refills Fluoxetine HCl (Fluoxetine HCl) 20 Mg Capsule 40 MG PO DAILY for 30 Days, #30 CAP 0 Refills Patient Instructions Goal/Follow Up Appt: Follow up with Michael Patel at [facility] on 03/18 at 2:20 pm. Activity & Diet Discharge Diet: Regular Diet JAUN ABERNATHY MD Mar 13, 2018 2:48 pm
--- NOTE | 2018-03-13 15:13 | Cardiology Stress Test Report ---
Stress Test Report Type of NM Stress Test: Test Type: LEXISCAN 0.4MG/5ML Date of Procedure/Referring: Date of Procedure: Mar 13, 2018 PCP Georgia Gonzales MD Admitting Physician [place] Indications: Chest pain Baseline Heart Rate: 94 Baseline Blood Pressure: Blood Pressure Systolic: 140 Blood Pressure Diastolic: 95 Baseline EKG: Baseline EKG: sinus rhythm. Summary: The patient was brought to the stress lab after informed consent was taken. Lexiscan stress test was performed according to the protocol. 0.4 mg of IV Lexiscan was given. Low-grade exercise was performed. Baseline EKG showed sinus rhythm at 94 bpm. Blood pressure was 140/95 mmHg. Maximum heart rate of 129 bpm and blood pressure 138/96 mmHg. Patient did not have any chest pain, arrhythmias or ST-T wave abnormalities. 10.80 mCi of Myoview given for rest imaging and 30.1 mCi of Myoview were given for stress imaging. Transient ischemic dilatation score of 1.06. Ejection fraction of 67 percent with no wall motion abnormalities. Normal perfusion during stress and rest. Conclusion: Pharmacological stress test is negative for ischemia. Normal LV function. Normal myocardial perfusion imaging during stress and rest. David COOPER MD Mar 13, 2018 3:13 pm
--- NOTE | 2018-03-13 16:09 | Discharge Summary ---
Diagnosis/Chief Complaint Date of Admission Mar 12, 2018 at 2:50 am Date of Discharge March 13, 2018 Admission Diagnosis Admission Diagnosis (1) Chest pain (2) Elevated d-dimer (3) COPD (chronic obstructive pulmonary disease) (4) PTSD (post-traumatic stress disorder) (5) History of substance abuse Discharge Diagnosis (1) Chest pain Status: Acute Assessment & Plan: Reproducible. Troponin negative. Possible history of AL in past. Cardiology consulted, stress test done and unremarkable. Echo with doppler parameters consistent with grade 1 diastolic dysfunction, normal EF. Qualifiers: Qualified Codes: R07.9 - Chest pain, unspecified (2) Elevated d-dimer Status: Acute Assessment & Plan: Given chest pain and shortness of breath, CTA chest checked and negative for PE (3) COPD (chronic obstructive pulmonary disease) Status: Chronic Assessment & Plan: RT protocol (4) PTSD (post-traumatic stress disorder) Status: Chronic Assessment & Plan: Needing to get restarted on medications and reestablish with behavioral health. Restarted fluoxetine on d/c. (5) History of substance abuse Status: Chronic Assessment & Plan: Denies use in last 13 months, discussed positive amphetamine on urine drug screen, she does not have any known source. Chief Complaint/HPI Chief Complaint/HPI 47 yo female presented to ER with chest pain. She states that she was out in the heat and thought she was getting chest heaviness due to that, but sat in the air conditioning in her trailer for a while and continued to get worse, so she came in. She does have a history of asthma/COPD and was previously on Combivent and Advair, but has been out of Advair for quite some time. She has still been using Combivent. She had moved away for a period of time and wasn't taking any of her medications, including her psychiatric medications fluoxetine and lamotrigine for her PTSD. She has been overall feeling poorly the last few weeks to month with difficulty with congested sounding cough, worsening shortness of breath and generalized body aches. She did have respiratory failure leading to what sounds like intubation for a prolonged period in 2004 and was told she had a heart attack in the past- maybe associated with that episode but she does not recall it. She does have a history of alcoholism and her last drink was years ago when she had interferon treatment for her hepatitis C. She did however continue to use other substances, including intravenous methamphetamine, reports last use IV was about 13 months ago and last use of any illicit substances 12 months ago. She did take a hydrocodone that she had left from some time in the past for her chest pain. Discharge Summary-Simple/Stand Consultations Discharge Physical Examination Allergies: Coded Allergies: No Known Drug Allergies (Unverified , 03/12/18) Vitals & I&Os Vital Sign - Last 12Hours Date Time Temp Pulse Resp B/P (MAP) Pulse Ox O2 Delivery O2 Flow Rate FiO2 03/13/18 13:00 97 03/13/18 12:00 98.1 22 139/89 (106) 98 Room Air Intake and Output 03/13/18 00:00 Intake Total 2180 ml Output Total 1750 ml Balance 430 ml Hospital Course See final discharge diagnosis. Radiology Reviewed CXR 03/12 no acute abnormalities Discharge Instructions to patient/family Please see electronic discharge instructions given to patient. Discharge Medications Reviewed and agree with Discharge Medication list on patient's Discharge Instruction sheet Clinical Quality Measures AMI/AHF: ASA po Prior to arrival: No DVT/VTE Risk/Contraindication: Risk Factor Score Per Nursin RFS Level Per Nursing on Admit: 4+=Very High Copy Copies To 1: HYUN Hsu BETHANY N MD Mar 13, 2018 16:09
== END 2018-03-13 14:46 | disposition home or self-care (01) ==
LOC: EDUNIT# 00:30 → ER 00:34 → UNDOADMOB 02:50 → 4TH 02:50 → UNDODISOB 03-13 16:03
PROVIDERS: ADMIT Family Medicine; ATTEND Family Medicine
DX: R07.9 Chest pain, unspecified (principal); J44.9 Chronic obstructive pulmonary disease, unspecified; J45.909 Unspecified asthma, uncomplicated; F17.210 Nicotine dependence, cigarettes, uncomplicated; I10 Essential (primary) hypertension; R79.1 Abnormal coagulation profile; I08.1 Rheumatic disorders of both mitral and tricuspid valves; F43.10 Post-traumatic stress disorder, unspecified; I25.2 Old myocardial infarction; Z82.49 Family history of ischemic heart disease and other diseases of the circulatory system; Z79.899 Other long term (current) drug therapy
CPT/HCPCS: 36415; 71045; 71275; 78452; 80053; 80061; 80306; 82150; 82550; 83690; 83735; 83874; 84484; 85025; 85379; 85610; 85730; 93005; 93017; 93041; 93306; 94640; 94664; 94760; 96374; G0378

== ENCOUNTER 2019-02-01 15:51 | Emergency (ER) | payer SELFPAY ==
[~2019-02-01] VITALS: Ht 154.9 cm; Wt 77.1 kg
[~2019-02-01 15:51] MED LIST: COMBIVENT; COREG; FLUO20CA25 PO; FLUT1DIS26 IH; LISINOPRIL; RT-ALBUINH IH; TIOT4MIS2 IH
--- OUTSIDE RECORDS SUMMARY | 2019-02-01 15:56 | XMS REPORT ---
Author Author Migration, Doctor Organization [facility] Address Unknown Phone Unavailable Care Team Providers Care Talent Acquisition Program Manager Name Role Phone Migration, Doctor Unavailable Unavailable PROBLEMS Type Condition ICD9-CM Code [id number] Code Onset Dates Condition Status SNOMED Code Problem Anxiety state F41.1 Active 880750940 Problem Alopecia areata L63.9 Active 97423404 Problem Moderate episode of recurrent major depressive disorder F33.1 Active 364168180 Problem Arthritis M19.90 Active 0454073 Problem Right-sided low back pain with right-sided sciatica M54.41 Active 460246457 Problem Chronic obstructive pulmonary disease, unspecified COPD type J44.9 Active 58155544 Problem Essential hypertension I10 Active 88363060 Problem Dysthymia F34.1 Active 72962611 ALLERGIES No Information ENCOUNTERS Encounter Location Date Diagnosis [facility] [id number] [place] [address] [id number] December, Dysthymia F34.1 and Essential hypertension I10 [place] [id number] [place] [address] [id number] Aug, High risk medication use Z79.899 ; Moderate episode of recurrent major depressive disorder F33.1 ; Dysthymia F34.1 and Chronic obstructive pulmonary disease, unspecified COPD type J44.9 [facility] [id number] [place] [phone] Aug, [facility] [id number] [place] [phone] Aug, [place] [id number] [place] [address] [id number] Jun, Arthritis M19.90 [place] [id number] [place] [address] [id number] May, Moderate episode of recurrent major depressive disorder F33.1 ; Essential hypertension I10 ; Chronic obstructive pulmonary disease, unspecified COPD type J44.9 ; Arthritis M19.90 and Acute nasopharyngitis J00 [facility] [address] [id number] [place] [id number] Apr, [facility] [id number] [place] [address] [id number] Apr, [facility] [id number] [place] [address] [id number] Mar, Moderate episode of recurrent major depressive disorder F33.1 [facility] [id number] [place] [address] [id number] Mar, Dysthymia F34.1 ; Chronic obstructive pulmonary disease, unspecified COPD type J44.9 and Right-sided low back pain with right-sided sciatica M54.41 [facility] [id number] [place] [address] [id number] Mar, [facility] [id number] [place] [address] [id number] Jan, Dysthymia F34.1 ; Essential hypertension I10 ; Chronic obstructive pulmonary disease, unspecified COPD type J44.9 and Right-sided low back pain with right-sided sciatica M54.41 [facility] [id number] [place] [address] [id number] December, Dysthymia F34.1 ; Essential hypertension I10 and Right-sided low back pain with right-sided sciatica M54.41 [facility] [id number] [place] [address] [id number] Dec, Essential hypertension I10 ; Right-sided low back pain with right-sided sciatica M54.41 and Dysthymia F34.1 [facility] [address] [id number] [id number] Oct, Essential hypertension I10 ; Anxiety state F41.1 and Right-sided low back pain with right-sided sciatica M54.41 [facility] [id number] [place] [address] [id number] Oct, Right-sided low back pain with right-sided sciatica M54.41 ; Chronic obstructive pulmonary disease, unspecified COPD type J44.9 and Essential hypertension I10 [address] [id number] 2015 Right-sided low back pain with right-sided sciatica M54.41 and Anxiety state F41.1 [place] [id number] [place] [address] [id number] Aug, 2015 Alopecia areata L63.9 ; Right-sided low back pain with right-sided sciatica M54.41 and Anxiety state F41.1 [place] [id number] [place] [address] [id number] Jul, Lumbago 724.2 and Ankle swelling, unspecified laterality M25.473 [place] [id number] [place] [address] [id number] Jun, Depression 311 ; Arthritis 716.90 and Right foot pain M79.[address] [place] [address] [id number] May, Pain in joint, lower leg 719.46 ; Chronic airway obstruction, not elsewhere classified 496 ; Depression 311 and Alopecia areata 704.[address] [place] [address] [id number] Apr, Pain in joint, lower leg 719.46 and Depression [address] [place] [address] [id number] Mar, Lumbago 724.2 and Chronic airway obstruction, not elsewhere classified [address] [place] [address] [id number] Jan, [place] [id number] [place] [address] [id number] Jan, Chronic airway obstruction, not elsewhere classified 496 and Arthritis 716.90 [facility] [id number] [place] [phone] December, Pain in joint, shoulder region 719.41 and Pain in joint, lower leg 719.[address] [place] [address] [id number] December, Lumbago 724.2 ; Pain in joint, lower leg 719.46 and Pain in joint, shoulder region 719.41 [facility] [address] [facility] [id number] [place] [address] Dec, [facility] [place] [facility] [address] [id number] [place] [address] Dec, [facility] [id number] [place] [id number] Jul, [facility] [place] [facility] [id number] [place] [id number] Jul, [facility] [address] [facility] [id number] [place] [id number] Jun, [facility] [place] [facility] [id number] [place] [address], [place] [address] Jun, [facility] [place] [facility] [address] [address] May, [facility] [id number] [place] [id number] May, [facility] [place] [facility] [address] [address] May, [facility] [id number] [place] [id number] Mar, [facility] [place] [facility] [address] [id number] [address] Mar, [facility] [id number] [place] [id number] December, [facility] [place] [facility] [address] [id number] [address] December, [facility] [address] [facility] [id number] [place] [id number] Dec, [facility] [place] [facility] [address] [facility] [id number] [place] [address] Dec, [facility] [place] [facility] [address] [id number] [address] Oct, [facility] [place] [facility] [address] [facility] [id number] [place] [address] Oct, [facility] [address] [id number] [place] [phone] Oct, [facility] [place] [facility] [address] [facility] [facility] [id number] [place] [address] Oct, [facility] [address] [facility] [id number] [place] [id number] Aug, [facility] [place] [facility] [address] [facility] [id number] [place] [address] Aug, [facility] [place] [facility] [address] [id number] [place] [address] Aug, [facility] [place] [facility] [address] [facility] [facility] [id number] [place] [address] Aug, [facility] [place] [facility] [address] [address] Jul, [facility] [place] [facility] [address] [facility] [id number] [place] [address] Jul, [facility] [address] [facility] [id number] [place] [id number] Jul, [facility] [place] [facility] [address] [facility] [id number] [place] [address] Jul, [facility] [address] [id number] [place] [id number] Jun, [facility] [place] [facility] [address] [id number] [place] [address] Jun, [facility] [address] [id number] [place] [id number] May, [facility] [address] [id number] [place] [id number] May, [facility] [address] [id number] [place] [id number] Apr, [facility] [place] [facility] [address] [id number] [address] Apr, [facility] [address] [id number] [place] [id number] Apr, [facility] [address] [id number] [place] [id number] Mar, [facility] [address] [id number] [place] [id number] Mar, [facility] [address] [id number] [place] [id number] December, [facility] [id number] [place] [address] [id number] Oct, [facility] [id number] [place] [address] [id number] Aug, [facility] [id number] [place] [address] Aug, [facility] [id number] [place] [address] [id number] Jul, [facility] [id number] [place] [address] Jul, [facility] [id number] [place] [address] [id number] Jun, [facility] [id number] [place] [address] [id number] May, [facility] [id number] [place] [address] [id number] May, [facility] [id number] [place] [id number] Apr, [facility] [id number] [place] [id number] Mar, [facility] [id number] [place] [id number] Mar, [facility] [id number] [place] [address] Jan, IMMUNIZATIONS No Known Immunizations SOCIAL HISTORY Never Assessed REASON FOR VISIT EMR-[facility] PLAN OF CARE VITAL SIGNS MEDICATIONS No Known Medications RESULTS No Results PROCEDURES No Known procedures INSTRUCTIONS MEDICATIONS ADMINISTERED No Known Medications MEDICAL (GENERAL) HISTORY Type Description Date Medical History asthma Medical History chronic obstructive pulmonary disease (COPD) Medical History chronic pain--knees and back 

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
[2019-02-01 17:57] VITALS: BP 134/92
== END 2019-02-01 17:57 | disposition home or self-care (01) ==
LOC: EDUNIT# 15:51 → ER 15:52
DX: M54.2 Cervicalgia (principal); J44.9 Chronic obstructive pulmonary disease, unspecified; I25.2 Old myocardial infarction; I10 Essential (primary) hypertension; F41.9 Anxiety disorder, unspecified; F43.10 Post-traumatic stress disorder, unspecified; F31.9 Bipolar disorder, unspecified; F17.210 Nicotine dependence, cigarettes, uncomplicated; Z79.51 Long term (current) use of inhaled steroids; Z90.89 Acquired absence of other organs; Z82.49 Family history of ischemic heart disease and other diseases of the circulatory system; Z98.890 Other specified postprocedural states; V47.6XXA Car passenger injured in collision with fixed or stationary object in traffic accident, initial encounter
CPT/HCPCS: 70450; 72125